=== PATIENT | female | born 1965 | race Caucasian/White ===

== ENCOUNTER 2016-07-17 14:09 | Emergency (ER) | payer MEDICAID ==
[2015-09-16 11:01] VITALS: BMI 24.9
[~2016-07-17 14:09] MED LIST: BYSTOLIC10 MG PO; COZAAR100 MG PO; CYCLOBENZAPRINE10 MG PO; ECOTRIN325 MG PO; FERROUS SULFAT325 MG PO; GLUCOPHAGE500 MG PO; LIPITOR80 MG PO; LYRICA150 MG PO; NITROSTAT0.4 MG SL; POTASSIUM CHLO10 ME1 PO; PRILOSEC20 MG PO; PROVENTIL HFA6.7 GM INH; SINGULAIR10 MG PO; VENTOLIN HFA18 GM INH
[2016-07-17 16:32] LABS: BASOPHILS 0.2 % (0.0-2.0); IMMATURE GRANULOCYTES 0.2 % (0-5); LYMPHOCYTES 24.3 % (15-50); MCH 29.6 pg (26.0-34.0); MCHC 31.8 g/dL (31.0-37.0); MEAN PLATELET VOLUME 12.8 fL (7.4-10.4); MONOCYTES 7.1 % (2-11); NEUTROPHILS 66.2 % (40-80); PLATELET COUNT 120 10x3/uL (130-400); RBC 4.73 10x6/uL (4.00-5.40); RDW 13.7 % (11.5-14.5); WBC 9.2 10x3/uL (4.8-10.8)
[2016-07-17 16:48] LABS: AMYLASE - SERUM 146 U/L (25-115); LIPASE 1289 U/L (73-393)
[2016-07-17 17:46] LABS: ALBUMIN 3.5 g/dL (3.4-5.0); ALKALINE PHOSPHATASE 115 U/L (46-116); ALT (SGPT) 31 U/L (10-68); BILIRUBIN - TOTAL 0.17 mg/dL (0.2-1.3); CALC OSMOLALITY 287 mosm/kg (275-300); CALCIUM 8.6 mg/dL (8.5-10.1); CARBON DIOXIDE 28.8 mmol/L (21.0-32.0); CHLORIDE - SERUM 107 mmol/L (98-107); CREATININE - SERUM 0.8 mg/dL (0.6-1.3); GLUCOSE 129 mg/dL (74-106); POTASSIUM - SERUM 3.6 mmol/L (3.5-5.1); PROTEIN - SERUM 6.8 g/dL (6.4-8.2); SODIUM 144 mmol/L (136-145); UREA NITROGEN 11 mg/dL (7-18); eGFR NON AFRICAN AMERICAN 80 mL/min (90-120)
== END 2016-07-17 18:30 | disposition home or self-care (01) ==
LOC: D.ER 14:09
PROVIDERS: Physician Assistant Medical
DX: K43.9 Ventral hernia without obstruction or gangrene (principal); K59.00 Constipation, unspecified; K86.1 Other chronic pancreatitis; J44.9 Chronic obstructive pulmonary disease, unspecified; I25.10 Atherosclerotic heart disease of native coronary artery without angina pectoris; K21.9 Gastro-esophageal reflux disease without esophagitis; I10 Essential (primary) hypertension; E11.9 Type 2 diabetes mellitus without complications; F17.200 Nicotine dependence, unspecified, uncomplicated

== ENCOUNTER 2016-08-26 11:56 | Emergency (ER) | payer MEDICAID ==
[2015-09-16 11:01] VITALS: BMI 24.9
== END 2016-08-26 13:56 | disposition home or self-care (01) ==
LOC: D.ER 11:56
DX: M25.512 Pain in left shoulder (principal); F17.200 Nicotine dependence, unspecified, uncomplicated

== ENCOUNTER 2017-04-30 07:15 | Inpatient (IN) | payer MEDICAID ==
[~2017-04-30] VITALS: Ht 162.6 cm; Wt 74.1 kg
--- NOTE | ~2017-04-30 | HEMODYNAMI ---
PATIENT:RIKI ROME MEDICAL RECORD: [id number] : 63 LOCATION:[facility] D.211 ADMISSION DATE: 05/01/17 Generatedon:05/02/201710:26 Patient name: RIKI ROME Patient #: [id number] SSN: D OB: 1965 Date of study: 05/02/2017 Page: Of Hemodynamic Procedure Report Patient Data Patient Demographics Procedure consent was obtained First Name: RIKI Gender: Female Last Name: WILD : 1965 Middle Initial: L Age: 52 year(s) Patient #: [id number] Race: Additional ID: [id number] Contact details Address: [place] [address] State: [place] City: [facility] Zip code: [address] Past Medical History History of disease Date Diagnosis Comments CAD Allergies Allergen Reaction Date Comments Reported Other allergy 09/16/2015 IBUPROFEN, PRAMIPEXOLE Other allergy 05/01/2017 ibuprofen, pramipexole Other allergy 05/02/2017 Ibuprofen, Mirapex Admission Admission Data Admission Date: 05/01/2017 Admission Time: 19:02 Room #: [facility] Height (in.): 64 BSA: 1.73 (m2) Height (cm.): 162.56 BMI: 25.75 (kg/m2) Weight (lbs.): 150 Weight (kg.): 68.04 Lab Results Lab Result Date: 05/02/2017 Lab Result Time: 0:00 Biochemistry Name Units Result Min Max BUN mg/dl 11 --(-*--)-- 7 18 Creatinine mg/dl 1.2 --(---*)-- 0.6 1.3 CBC Name Units Result Min Max Hemoglobin g/dl 14 --(*---)-- 13.5 17.5 Procedure Procedure Types Cath Procedure PCI Procedure Coronary Stent Miscellaneous Procedures Moderate Sedation up to 15 minutes Procedure Description Procedure Date Procedure Date: 05/02/2017 Procedure Start Time: 10:08 Procedure End Time: 10:26 Procedure Staff Name Function Joe Millan MD Performing Physician Alcira Palacios RN Nurse She Drake RT Monitor Neli Perez RT Scrub Procedure Data Cath Procedure Fluoroscopy Diagnostic fluoroscopy Total fluoroscopy Time: 3.1 time: 3.1 min min Diagnostic fluoroscopy Total fluoroscopy dose: 318 dose: 318 mGy mGy Contrast Material Contrast Material Type Amount (ml) Isovue 300 75 Entry Location Entry Primary Successful Side Size Upsize Upsize Entry Closure Succes sful Closure Location (Fr) 1 (Fr) 2 (Fr) Remarks Device Remarks Femoral Right 6 Fr Exoseal artery Short Estimated blood loss: 10 ml Procedure Complications No complications Procedure Medications Medication Administration Route Dosage 0.9% NaCl I.V. 100 ml/hr Oxygen NC 2 l/min Lidocaine 2% added to field 20 Heparin Flush Bag added to field 2 bags (1000units/500ml NS) Versed I.V. 1 mg Fentanyl I.V. 50 mcg Versed I.V. 1 mg Fentanyl I.V. 50 mcg Fentanyl I.V. 50 mcg Heparin Bolus I.V. 4000 units Fentanyl I.V. 50 mcg Nitroglycerin IC/IA I.C. 200 mcg Nitroglycerin IC/IA I.C. 200 mcg Nitroglycerin IC/IA I.C. 100 mcg Hemodynamics Rest BSA: 1.73 (m2) HGB: 14 (g/dl) O2 Consumption: Estimated: 235.28 (ml/min) O2 Cons umption indexed: Estimated:136 (ml/min/m) Pre Cath Intra NCS Post Cath Vital Signs Time Heart Resp SPO2 etCO2 NIBP (mmHg) Rhythm Pain Sedation Rate (ipm) (%) (mmHg) Status Level (bpm) 10:00:05 86 18 97 42.2 129/73(99) NSR 0 (11) 10(A) , No pain 10:04:17 75 17 96 0 110/65(81) NSR 0 (11) 9(A) , No pain 10:08:25 77 18 98 52 119/72(98) NSR 0 (11) 9(A) , No pain 10:12:33 80 17 95 51.2 125/80(96) NSR 0 (11) 9(A) , No pain 10:16:47 85 16 93 14.3 121/67(101) NSR 0 (11) 9(A) , No pain 10:20:59 83 16 95 46.7 121/74(104) NSR 0 (11) 10(A) , No pain 10:25:06 86 18 99 44.5 135/82(112) NSR 0 (11) 10(A) , No pain Medications Time Medication Route Dose Verified Delivered Reason Not es Effectiveness by by 9:18:39 0.9% NaCl I.V. 100ml/hr Joe Yousif used for Monty Liu RN procedure 9:18:49 Oxygen NC 2 l/min Joe Yousif Per physician Monty Liu RN 9:18:56 Lidocaine 2% added 20ml Joejhoana Diaz for local to vial Monty Millan MD anesthetic field 9:19:04 Heparin Flush added 2 bags Joe Diaz used for Bag to Monty Millan MD procedure (1000units/500ml field NS) 10:01:36 Versed I.V. 1 mg Joe Eli for sedation Monty Palacios RN 10:01:42 Fentanyl I.V. 50 mcg Joe Eli for sedation Monty Palacios RN 10:06:19 Versed I.V. 1 mg Joe Eli for sedation Monty Palacios RN 10:06:23 Fentanyl I.V. 50 mcg Joe Eli for sedation Monty Palacios RN 10:08:37 Fentanyl I.V. 50 mcg Joe Nullie for sedation Monty Palacios RN 10:09:25 Heparin Bolus I.V. 4000 Joe Buffie for ai ified units Monty Palacios RN anticoagulation with dr millan 10:12:53 Fentanyl I.V. 50 mcg Joe Eli for sedation Monty Palacios RN 10:14:54 Nitroglycerin I.C. 200 mcg Joe Diaz for IC/IA Monty Millan MD vasodilation 10:16:14 Nitroglycerin I.C. 200 mcg Joe Diaz for IC/IA Monty Millan MD vasodilation 10:18:14 Nitroglycerin I.C. 100 mcg Joe Diaz for IC/IA Monty Millan MD vasodilation Procedure Log Time Note 9:06:08 Diagnostic Cath Status : Elective 9:06:25 Neli Perez RT(R) sent for patient. Start room use. 9:06:26 Time tracking: Regular hours 9:06:30 Plan of Care:Hemodynamics will remain stable., Cardiac rhythm will remain stable., Comfort level will be maintained., Respiratory function will remain adequate., Patient/ family verbilizes understanding of procedure., Procedure tolerated without complication., Recovers from procedure without complications.. 9:18:39 0.9% NaCl 100ml/hr I.V. was administered by Nica Liu RN; used for procedure; 9:18:49 Oxygen 2 l/min NC was administered by Nica Liu RN; Per physician; 9:18:56 Lidocaine 2% 20ml vial added to field was administered by Joe Millan MD; for local anesthetic; 9:19:04 Heparin Flush Bag (1000units/500ml NS) 2 bags added to field was administered by Joe Millan MD; used for procedure; 9:20:53 Patient received from PCU to CCL 2 Alert and oriented. Tansferred to table in Supine position. 9:20:54 Warm blankets applied, and balwinder hugger turned on for patient comfort. 9:20:55 Correct patient and procedure confirmed by team. 9:20:56 Signed procedure consent form obtained from patient. 9:20:56 ECG and BP/O2 sat monitors applied to patient. 9:20:57 Full Disclosure recording started 9:22:50 Previous problem with sedation/anesthesia? No ? 9:22:54 Snore? Yes 9:23:00 Sleep apnea? No 9:23:07 Airway obstruction? Yes COPD 9:23:28 H&P Date Dictated: 05/01/2017 Within 30 days and on chart., H&P Addendum completed by physician on day of procedure. (MUST COMPLETE FOR ALL OUTPATIENTS). 9:23:30 Pre-procedure instructions explained to patient. 9:23:42 Family in patients room. 9:23:48 Patient NPO since Midnight. 9:24:22 Patient allergic to Other allergyIbuprofen, Mirapex 9:24:26 Is the patient allergic to Iodine/contrast media? No. 9:24:32 Is patient on blood thinner?Yes 9:24:36 ACC The patient was administered the following blood thiners within the last 24 hours: ACCPlavix 9:24:38 Patient diabetic? Yes. 9:24:42 If diabetic: On Metformin? Yes 9:24:48 If on Metformin: Last Dose? 04/29/2017 9:24:53 HCG/Urine : completed and on chart 9:25:20 Patient pain scale 8/10 ?. 9:25:29 IV patent on arrival in left forearm with 0.9% NaCl at [facility]. 9:26:07 Lab Result : BUN 11 mg/dl 9:26:07 Lab Result : Creatinine 1.2 mg/dl 9:26:07 Lab Result : Hemoglobin 14 g/dl 9:26:12 Lab results completed and on chart. 9:26:16 Left groin area was prepped with chlora-prep and draped in sterile fashion 9:26:22 Sharps counted by scrub and verified by R.N. 9:26:23 Physician paged 9:31:01 Use device set Femoral Dx 9:31:04 ACIST Syringe (46719) opened to sterile field. 9:31:04 Bag Decanter (2002S) opened to sterile field. 9:31:06 Medline Cath Pack ([id number]) opened to sterile field. 9:31:08 DIAGNOSTIC WIRE .035 260cm J wire (410398) opened to sterile field. 9:31:10 ACIST Hand Control (85263) opened to sterile field. 9:31:10 ACIST Manifold (47541) opened to sterile field. 9:31:14 Tegaderm 4 x 4 (1626W) opened to sterile field. 9:31:18 PERCUTANEOUS ENTRY 19GA needle opened to sterile field. 9:31:31 SHEATH 6FR [place] (BHS705) opened to sterile field. 9:37:33 INFLATOR Merit BasixCompak (NL6960) opened to sterile field. 9:37:35 GUIDE 6FR XBLAD 3.5 catheter ([id number]) opened to sterile field. 9:42:09 WHISPER 190cm wire ([id number]) opened to sterile field. 9:42:17 Zero performed for pressure channel P1 9:44:22 Zero performed for pressure channel P1 9:52:52 Procedure type changed to Cath procedure, PCI procedure, Coronary Stent, Miscellaneous Procedures, Moderate Sedation up to 15 minutes 9:53:49 Patient Height : 64 inches 9:53:53 Patient Weight : 150 lbs 9:55:10 Physician arrived 9:55:11 --------ALL STOP TIME OUT------ 9:55:12 Final Timeout: patient, procedure, and site verified with staff and physician. All members of the team are in agreement. 9:55:20 Left groin site verified by team. 9:55:24 Physical assessment completed. ASA score P 2 - A patient with mild systemic disease as per Joe Millan MD. 9:55:28 Sedation plan: IV Moderate Sedation Medication:Versed, Fentanyl 9:58:59 Vital chart was started 10:01:36 Versed 1 mg I.V. was administered by Alcira Palacios RN; for sedation; 10:01:42 Fentanyl 50 mcg I.V. was administered by Alcira Palacios RN; for sedation; 10:06:19 Versed 1 mg I.V. was administered by Alcira Palacios RN; for sedation; 10:06:23 Fentanyl 50 mcg I.V. was administered by Alcira Palacios RN; for sedation; 10:08:36 Procedure started. 10:08:37 Fentanyl 50 mcg I.V. was administered by Alcira Palacios RN; for sedation; 10:08:40 Local anesthetic to left femerol artery with Lidocaine 2% by Joe Millan MD.INITIAL ACCESS ONLY 10:08:50 A 6 Fr Short sheath was inserted into the Right Femoral artery 10:09:25 Heparin Bolus 4000 units I.V. was administered by Alcira Palacios RN; for anticoagulation; verified with dr millan 10:09:30 6 Fr XBLAD 3.5 guide catheter was inserted over the wire 10:09:38 Whisper wire advanced. 10:09:48 Wire advanced across lesion. 10:10:51 Wire redirected to CX. 10:11:30 Inflation Number: 1 A INTEGRITY RX 3.0 x 15 stent ([id number]) was prepped and advanced across the Mid CX. The stent was deployed at 11 TADEO for 0:10 (min:sec). 10:12:00 Stent catheter was removed intact over wire. 10:12:53 Fentanyl 50 mcg I.V. was administered by Alcira Palacios RN; for sedation; 10:14:10 Inflation number: 2 A NC EUPHORA 3.0 x 12 balloon ([id number]) was prepped and advanced across the Mid CX, then inflated to 15 TADEO for 0:10 (min:sec). 10:14:54 Nitroglycerin IC/IA 200 mcg I.C. was administered by Joe Millan MD; for vasodilation; 10:14:56 Balloon removed over the wire. 10:16:14 Nitroglycerin IC/IA 200 mcg I.C. was administered by Joe Millan MD; for vasodilation; 10:17:54 Wire removed. 10:18:14 Nitroglycerin IC/IA 100 mcg I.C. was administered by Joe Millan MD; for vasodilation; 10:18:53 Guide catheter removed. 10:19:05 Sheath removed intact; hemostasis achieved with Exoseal to the Right Femoral artery. 10:19:15 EXOSEAL 6Fr (EX600) opened to sterile field. 10:19:24 Procedure ended.(Physican Out) 10:20:33 Fluoroscopy time 03.10 minutes. 10:20:41 Fluoroscopy dose: 318 mGy 10:20:41 Flurop Dose total: 318 10:20:48 Contrast amount:Isovue 300 75ml. 10:20:50 Sharps counted by scrub and verified by R.N. 10:20:53 Insertion/operative site no bleeding no hematoma. 10:20:57 Post-op/insertion site Left Femoral artery dressed using a 4 x 4 and Tegaderm. 10:21:02 Post Procedure Pulses reassessed and unchanged 10:21:07 Post-procedure physical assessment completed. ASA score P 2 - A patient with mild systemic disease as per Joe Millan MD. 10:21:14 Post procedure rhythm: sinus rhythm 10::17 Estimated blood loss: 10 ml 10:21:19 Post procedure instruction explained to patient.Patient verbalizes understanding. 10:21:29 Procedure and supply charges have been captured, reviewed, submitted and are correct. 10:25:57 Procedure Complication : No complications 10:26:00 Vital chart was stopped 10:26:02 See physician's report for complete and final results. 10:26:04 Report given to Pre/Post Procedure Room. 10:26:07 Patient transfered to Pre/Post Procedure Room with Stretcher. 10:26:09 Procedure ended. 10:26:09 Full Disclosure recording stopped 10:26:13 End room use (Document Last) Intervention Summary Intervention Notes Time ActionType Lesion and Equipment Action# Pressure Duration Attributes Used 10:11:30 Place stent Mid CX INTEGRITY RX 1 11 00:10 3.0 x 15 stent ([id number]) 10:14:10 Inflate Mid CX NC EUPHORA 2 15 00:10 balloon 3.0 x 12 balloon ([id number]) Device Usage Item Name Manufacture Quantity Catalog Hospital Part Current Minimal Lot# / Number Charge Number Stock Stock Serial# Code ACIST Acist 1 26139 888155 334548 146577 20 Syringe Medical (77463) Systems Inc Bag Decanter Microtek 1 2001S 525796 17763 072630 5 (2001S) Medical Inc. Medline Cath Cardinal 1 [id number] 467888 69311 952214 5 Pack Health ([id number]) DIAGNOSTIC [place] 1 638363 537613 282174 580421 30 WIRE .035 260cm J wire (434692) ACIST Hand Acist 1 62395 268062 452430 196698 5 Control Medical (93952) Systems Inc ACIST Acist 1 43335 173069 312123 888029 5 Manifold Medical (37793) Systems Inc Tegaderm 4 x 3M 1 1626W 633535 473750 151292 5 4 (1626W) PERCUTANEOUS Cook Medical 1 M90063 085231 053771 5 ENTRY 19GA needle SHEATH 6FR Terumo 1 HKJ503 190400 396210 440545 40 [place] (ZMQ914) INFLATOR [facility] 1 OT6252 165909 308948 177733 15 [facility] BasixCompak (RY3331) GUIDE 6FR Cardinal 1 [id number] 076977 784753 505114 10 XBLAD 3.5 Health catheter (14125801) WHISPER Manuel 1 [id number] 820668 982932 985060 5 190cm wire Vascular ([id number]) INTEGRITY RX Medtronic 1 [id number] 311090 568028 419704 5 [id number] 3.0 x 15 stent ([id number]) NC EUPHORA Medtronic 1 [id number] 963637 404506 353029 1 [id number] 3.0 x 12 balloon ([id number]) EXOSEAL 6Fr Cardinal 1 EX600 653626 729577 226470 10 (EX600) Health Signature Audit [place] Stage Time Signature Unsigned Intra-Procedure 05/02/2017 She Drake 10:26:40 AM RT(R) Signatures Monitor : She Drake Signature : RT Date : Time : [place] [id number] [place] [address]
--- NOTE | ~2017-04-30 | HEMODYNAMI ---
PATIENT:RIKI ROME MEDICAL RECORD: [id number] : 63 LOCATION:[facility] D.2116 ADMISSION DATE: 04/30/17 Generatedon:05/01/201710:43 Patient name: RIKI ROME Patient #: [id number] SSN: D OB: 1965 Date of study: 05/01/2017 Page: Of Hemodynamic Procedure Report Patient Data Patient Demographics Procedure consent was obtained First Name: RIKI Gender: Female Last Name: WILD : 1965 Middle Initial: L Age: 52 year(s) Patient #: [id number] Race: Additional ID: [id number] Contact details Address: [place] [address] State: [place] [facility] [place] code: [address] Past Medical History History of disease Date Diagnosis Comments CAD Allergies Allergen Reaction Date Comments Reported Other allergy 09/16/2015 IBUPROFEN, PRAMIPEXOLE Other allergy 05/01/2017 ibuprofen, pramipexole Admission Admission Data Admission Date: 04/30/2017 Admission Time: 10:56 Room #: D.2116 Procedure Procedure Types Cath Procedure Diagnostic Procedure C [facility] w/Coronaries PCI Procedure Coronary Stent Coronary Stent Initial Miscellaneous Procedures Moderate Sedation up to 15 minutes Procedure Description Procedure Date Procedure Date: 05/01/2017 Procedure Start Time: 10:20 Procedure End Time: 10:43 Procedure Staff Name Function Joe Millan MD Performing Physician Deysi Patel RT Monitor Kirill Saini RT Scrub Alcira Palacios RN Nurse Procedure Data Cath Procedure Fluoroscopy Diagnostic fluoroscopy Total fluoroscopy Time: 3.4 time: 3.4 min min Diagnostic fluoroscopy Total fluoroscopy dose: 278 dose: 278 mGy mGy Contrast Material Contrast Material Type Amount (ml) Isovue 300 88 Entry Location Entry Primary Successful Side Size Upsize Upsize Entry Closure Succes sful Closure Location (Fr) 1 (Fr) 2 (Fr) Remarks Device Remarks Femoral Right 5 Fr 6 Fr Exoseal artery Short Estimated blood loss: 10 ml Diagnostic catheters Device Type Used For End Catheter Placement MULTIPACK Pigtail 5 Fr LV Angiography catheter MULTIPACK JL 4.0 5Fr Left Coronary catheter Angiography MULTIPACK 3DRC 5Fr Right Coronary catheter Angiography DIAGNOSTIC AR 2 MOD 5 Fr Right Coronary catheter ([id number]) Angiography Procedure Complications No complications Procedure Medications Medication Administration Route Dosage Oxygen NC 2 l/min Lidocaine 2% added to field 20 Heparin Flush Bag added to field 2 bags (1000units/500ml NS) 0.9% NaCl I.V. 100 ml/hr Versed I.V. 1 mg Fentanyl I.V. 50 mcg Heparin Bolus I.V. 4000 units Nitroglycerin IC/IA I.C. 200 mcg Versed I.V. 1 mg Fentanyl I.V. 50 mcg Plavix P.O. 75 mg Hemodynamics Rest Heart Rate: 68 (bpm) Snapshots Pre Cath Intra NCS Post Cath Vital Signs Time Heart Resp SPO2 etCO2 NIBP (mmHg) Rhythm Pain Sedation Rate (ipm) (%) (mmHg) Status Level (bpm) 9:49:14 69 21 95 21.8 101/51(91) NSR 0 (11) 10(A) , No pain 9:54:27 67 19 99 18 117/72(86) NSR 0 (11) 10(A) , No pain 9:59:08 68 14 99 17.8 114/66(84) NSR 0 (11) 10(A) , No pain 10:03:53 66 17 98 20.3 100/57(87) NSR 0 (11) 10(A) , No pain 10:08:33 66 17 98 22.5 108/61(80) NSR 0 (11) 10(A) , No pain 10:13:16 69 16 98 23.3 100/62(88) NSR 0 (11) 10(A) , No pain 10:17:58 65 15 99 22.5 93/53(81) NSR 0 (11) 10(A) , No pain 10:22:37 66 15 98 14.2 106/56(74) NSR 0 (11) 9(A) , No pain 10:27:18 70 16 98 16.5 109/63(80) NSR 0 (11) 9(A) , No pain 10:32:00 74 21 97 39.8 119/61(94) NSR 0 (11) 9(A) , No pain 10:36:43 76 18 98 39.1 129/68(108) NSR 0 (11) 10(A) , No pain 10:41:28 79 24 98 38.3 141/79(101) NSR 0 (11) 10(A) , No pain Medications Time Medication Route Dose Verified Delivered Reason Notes Effectiveness by by 9:53:11 Oxygen NC 2 Joe Eli used for l/min Monty Palacios RN procedure 9:53:17 Lidocaine 2% added 20ml Joe Diaz for local to vial Monty Millan MD anesthetic field 9:53:23 Heparin Flush added 2 Joe Diaz used for Bag to bags Monty Millan MD procedure (1000units/500ml field NS) 9:53:32 0.9% NaCl I.V. 100 Joe Eli Per physician ml/hr Monty Palacios RN 10:18:48 Versed I.V. 1 mg oJe Eli for sedation Monty Palacios RN 10:18:54 Fentanyl I.V. 50 Joe Eli for sedation mcg Monty Palacios RN 10:21:28 Versed I.V. 1 mg Joe Eli for sedation Monty Palacios RN 10:21:32 Fentanyl I.V. 50 Joe Eli for sedation mcg Monty Palacios RN 10:25:53 Heparin Bolus I.V. 4000 Joe Eli for verifi ed units Monty Palacios RN anticoagulation with dr millan 10:29:38 Nitroglycerin I.C. 200 Joe Diaz for IC/IA mcg Monty Millan MD vasodilation 10:38:04 Plavix P.O. 75 mg Joe Eli for Monty Palacios RN antiplatelet therapy Procedure Log Time Note 9:32:55 Alcira Palacios RN sent for patient. Start room use. 9:32:55 Time tracking: Regular hours 9:33:00 Plan of Care:Hemodynamics will remain stable., Cardiac rhythm will remain stable., Comfort level will be maintained., Respiratory function will remain adequate., Patient/ family verbilizes understanding of procedure., Procedure tolerated without complication., Recovers from procedure without complications.. 9:37:27 H&P Date Dictated: 04/30/2017 Within 30 days and on chart., H&P Addendum completed by physician on day of procedure. (MUST COMPLETE FOR ALL OUTPATIENTS). 9:38:56 Patient allergic to Other allergyibuprofen, pramipexole 9:39:00 Patient diabetic? Yes. 9:39:01 If diabetic: On Metformin? Yes 9:39:04 If on Metformin: Last Dose? 04/29/2017 9:39:08 ACC The patient was administered the following blood thiners within the last 24 hours: None 9:39:25 Previous problem with sedation/anesthesia? No ? 9:39:26 Snore? No 9:39:27 Sleep apnea? No 9:39:28 Deviated septum? No 9:39:28 Opens mouth fully? Yes 9:39:29 Sticks out tongue? Yes 9:39:32 Airway obstruction? Yes COPD 9:39:34 Dentures? Yes IN 9:39:41 Use device set Femoral Dx 9:39:42 ACIST Syringe (37346) opened to sterile field. 9:39:43 Bag Decanter (2002S) opened to sterile field. 9:39:43 Medline Cath Pack ([id number]) opened to sterile field. 9:39:44 SHEATH 5FR Ely (BCX606) opened to sterile field. 9:39:44 DIAGNOSTIC WIRE .035 260cm J wire (694147) opened to sterile field. 9:39:46 ACIST Hand Control (68041) opened to sterile field. 9:39:46 ACIST Manifold (62442) opened to sterile field. 9:39:47 DIAGNOSTIC Multipack 5Fr catheter set ([id number]) opened to sterile field. 9:39:48 Tegaderm 4 x 4 (1626W) opened to sterile field. 9:39:49 PERCUTANEOUS ENTRY 19GA needle opened to sterile field. 9:43:16 Warm blankets applied, and balwinder hugger turned on for patient comfort. 9:43:17 Correct patient and procedure confirmed by team. 9:44:30 Patient received from PCU to CCL 1 Alert and oriented. Tansferred to table in Supine position. 9:48:09 Signed procedure consent form obtained from patient. 9:48:10 ECG and BP/O2 sat monitors applied to patient. 9:48:11 Vital chart was started 9:50:24 Rhythm: sinus rhythm 9:50:27 Baseline sample Acquired. :50: Full Disclosure recording started 9:50:29 Pre-procedure instructions explained to patient. :50: Pre-op teaching completed and patient verbalized understanding. 9:50:30 Family in waiting room. 9:50:32 Patient NPO since Midnight. 9:50:34 Is the patient allergic to Iodine/contrast media? No. 9:50:37 Is patient on blood thinner?No 9:50:44 Pre procedure: right dorsailis pedis pulse 2+ Normal; easily identifiable; not easily obliterated 9:50:47 Patient pain scale 0/10 ?. 9:50:54 IV patent on arrival in left forearm with 0.9% NaCl at KVO. 9:50:57 Lab results completed and on chart. 9:51:01 Right groin area was prepped with chlora-prep and draped in sterile fashion 9:51:03 Alarms reviewed by R. N. 9:51:03 Sharps counted by scrub and verified by R.N. 9:53:11 Oxygen 2 l/min NC was administered by Alcira Palacios RN; used for procedure; 9:53:17 Lidocaine 2% 20ml vial added to field was administered by Joe Millan MD; for local anesthetic; 9:53:23 Heparin Flush Bag (1000units/500ml NS) 2 bags added to field was administered by Joe Millan MD; used for procedure; 9:53:32 0.9% NaCl 100 ml/hr I.V. was administered by Alcira Palacios RN; Per physician; 10:01:17 Physician paged 10:01:24 Zero performed for pressure channel P1 10:17:58 Final Timeout: patient, procedure, and site verified with staff and physician. All members of the team are in agreement. 10:18:04 Right groin site verified by team. 10:18:08 Physical assessment completed. ASA score P 2 - A patient with mild systemic disease as per Joe Millan MD. 10:18:12 Sedation plan: IV Moderate Sedation Medication:Versed, Fentanyl 10:18:48 Versed 1 mg I.V. was administered by Alcira Palacios RN; for sedation; 10:18:54 Fentanyl 50 mcg I.V. was administered by Alcira Palacios RN; for sedation; 10:19:57 Procedure started. 10:20:01 Local anesthetic to right femoral artery with Lidocaine 2% by Joe Millan MD.INITIAL ACCESS ONLY 10:21:09 A 5 Fr sheath was inserted into the Right Femoral artery 10:21:28 Versed 1 mg I.V. was administered by Alcira Palacios RN; for sedation; 10:21:32 Fentanyl 50 mcg I.V. was administered by Alcira Palacios RN; for sedation; 10:21:39 A MULTIPACK Pigtail 5 Fr catheter was advanced over the wire and used for LV Angiography. 10:21:59 LV gram done using CORONADO 10:22:02 Injector settings: Ml/sec: 10, Volume: 20, 10:22:12 EF : 60 % 10:22:17 Catheter removed. 10:22:23 A MULTIPACK JL 4.0 5Fr catheter was advanced over the wire and used for Left Coronary Angiography. 10:23:08 Catheter removed. 10:23:14 A MULTIPACK 3DRC 5Fr catheter was advanced over the wire and used for Right Coronary Angiography. 10:23:24 Use device set [facility] PCI 10:23:30 SHEATH 6FR Ely ([id number]) opened to sterile field. 10:23:31 INFLATOR Merit BasixCompak (QP3069) opened to sterile field. 10:24:03 Catheter removed. 10:24:26 A DIAGNOSTIC AR 2 MOD 5 Fr catheter ([id number]) was advanced over the wire and used for Right Coronary Angiography. 10:25:53 Heparin Bolus 4000 units I.V. was administered by Alcira Palaciso RN; for anticoagulation; verified with dr millan 10:26:26 WHISPER 190cm wire ([id number]) opened to sterile field. 10:27:16 Sheath upsized to a 6 Fr Short. 10:28:54 GUIDE 6FR AR 1.0 SH catheter ([id number]) opened to sterile field. 10:29:38 Nitroglycerin IC/IA 200 mcg I.C. was administered by Joe Millan MD; for vasodilation; 10:29:47 6 Fr AR 1 Sh guide catheter was inserted over the wire 10:29:51 Whisper wire advanced. 10:31:20 Inflation Number: 1 A INTEGRITY RX 3.0 x 15 stent ([id number]) was prepped and advanced across the Prox RCA. The stent was deployed at 13 TADEO for 0:05 (min:sec). 10:31:33 Inflation number: 2 The stent balloon was then re-inflated across the Prox RCA to 13 TADEO for 0:04 (min:sec). 10:31:39 Inflation number: 3 The stent balloon was then re-inflated across the Prox RCA to 13 TADEO for 0:02 (min:sec). 10:31:47 Inflation number: 4 The stent balloon was then re-inflated across the Prox RCA to 13 TADEO for 0:02 (min:sec). 10:32:05 Stent catheter was removed intact over wire. 10:32:06 Wire removed. 10:32:06 Guide catheter removed. 10:32:16 Sheath removed intact; hemostasis achieved with Exoseal to the Right Femoral artery. 10:32:18 Procedure ended.(Physican Out) 10:32:32 EXOSEAL 6Fr (EX600) opened to sterile field. 10:32:41 Fluoroscopy time 03.40 minutes. 10:32:43 Fluoroscopy dose: 278 mGy 10:32:43 Flurop Dose total: 278 10:32:47 Contrast amount:Isovue 300 88ml. 10:32:48 Sharps counted by scrub and verified by R.N. 10:32:50 Insertion/operative site no bleeding no hematoma. 10:32:52 Post-op/insertion site Right Femoral artery dressed using a 4 x 4 and Tegaderm. 10:32:56 Post right femoral artery:stable, soft, clean and dry 10:32:58 Post Procedure Pulses reassessed and unchanged 10:33:01 Post-procedure physical assessment completed. ASA score P 2 - A patient with mild systemic disease as per Joe Millan MD. 10:33:03 Post procedure rhythm: unchanged. 10:33:05 Estimated blood loss: 10 ml 10:33:07 Post procedure instruction explained to patient.Patient verbalizes understanding. 10:33:07 Patient needs reinforcement of post procedure teaching. 10:33:32 Procedure type changed to Cath procedure, Diagnostic procedure, LHC, LHC w/Coronaries, PCI procedure, Coronary Stent, Coronary Stent Initial, Miscellaneous Procedures, Moderate Sedation up to 15 minutes 10:33:38 Procedure Complication : No complications 10:33:41 See physician's report for complete and final results. 10:35:59 Procedure and supply charges have been captured, reviewed, submitted and are correct. 10:38:04 Plavix 75 mg P.O. was administered by Alcira Palacios RN; for antiplatelet therapy; 10:43:00 Vital chart was stopped 10:43:03 Report given to PCU. 10:43:07 Patient transfered to PCU with Bed. 10:43:16 Procedure ended. 10:43:16 Full Disclosure recording stopped 10:43:23 End room use (Document Last) Intervention Summary Intervention Notes Time ActionType Lesion and Equipment Action# Pressure Duration Attributes Used 10:31:20 Place stent Prox RCA INTEGRITY RX 1 13 00:05 3.0 x 15 stent ([id number]) 10:31:33 Reinflate Prox RCA INTEGRITY RX 2 13 00:04 stent 3.0 x 15 balloon stent ([id number]) 10:31:39 Reinflate Prox RCA INTEGRITY RX 3 13 00:02 stent 3.0 x 15 balloon stent ([id number]) 10:31:47 Reinflate Prox RCA INTEGRITY RX 4 13 00:02 stent 3.0 x 15 balloon stent ([id number]) Device Usage Item Name Manufacture Quantity Catalog Hospital Part Current Minimal Lot# / Number Charge Number Stock Stock Serial# Code ACIST Acist 1 16125 149500 223609 700891 20 Syringe Medical (65202) Systems Inc Bag Decanter Microtek 1 2001S 578025 49086 530336 5 (2001S) Medical Inc. Medline Cath Cardinal 1 [id number] 282726 39724 759857 5 Pack Health ([id number]) SHEATH 5FR Terumo 1 LPY025 152320 331170 783702 40 Ely (HCU433) DIAGNOSTIC St Juan 1 279122 083924 369573 449813 30 WIRE .035 260cm J wire (063239) ACIST Hand Acist 1 61680 777934 786993 271935 5 Control Medical (42952) Systems Inc ACIST Acist 1 89624 098985 057096 008289 5 Manifold Medical (51247) Systems Inc DIAGNOSTIC Cardinal 1 JU5970 036668 35098 624064 30 MultipPanX 5Fr catheter set (GU6795) Tegaderm 4 x 3M 1 1626W 666955 892889 336720 5 4 (1626W) PERCUTANEOUS Cook Medical 1 P26651 508637 457599 5 ENTRY 19GA needle MULTIPACK Cardinal 1 006968 5 Pigtail 5 Fr Health catheter MULTIPACK JL Cardinal 1 173264 5 4.0 5Fr Health catheter MULTIPACK Cardinal 1 114509 5 3DRC 5Fr Health catheter SHEATH 6FR Terumo 1 MNJ712 070835 427065 101916 40 Ely (LKK516) INFLATOR Merit 1 QI5603 807829 923074 720488 15 [facility] Medical BasixCompak (GU2652) DIAGNOSTIC Cardinal 1 [id number] 620163 432122 373247 20 AR 2 MOD 5 Health Fr catheter (398229T) WHISPER Manuel 1 [id number] 904311 567473 606638 5 190cm wire Vascular (7932810AR) GUIDE 6FR AR Medtronic 1 [id number] 368247 71573 130489 1 1.0 SH catheter ([id number]) INTEGRITY RX Medtronic 1 [id number] 160107 581204 916658 5 [id number] 3.0 x 15 stent ([id number]) EXOSEAL 6Fr Cardinal 1 EX600 843777 844399 768844 10 (EX600) Health Signature Audit Ho[place] Stage Time Signature Unsigned Intra-Procedure 05/01/2017 Deysi 10:43:44 AM Counts RT(R) Signatures Monitor : Deysi Signature : Counts RT Date : Time : [address] [address]
[~2017-04-30 07:15] MED LIST changes: +OMEPRAZOLE40 MG PO; -PRILOSEC20 MG PO
[2017-04-30 08:15] LABS: BASOPHILS 0.2 % (0-2); EOSINOPHILS 1.9 % (0-7); HEMATOCRIT 42.3 % (36.0-48.0); IMMATURE GRANULOCYTES 0.2 % (0-5); LYMPHOCYTES 21.7 % (15-50); MCH 30.1 pg (26.0-34.0); MCHC 33.1 g/dL (31.0-37.0); MONOCYTES 5.3 % (2-11); NEUTROPHILS 70.7 % (40-80); PLATELET COUNT 115 10x3/uL (130-400); RBC 4.65 10x6/uL (4.00-5.40); RDW 13.1 % (11.5-14.5); WBC 8.5 10x3/uL (4.8-10.8)
[2017-04-30 08:28] LABS: ALBUMIN 3.3 g/dL (3.4-5.0); ALKALINE PHOSPHATASE 133 U/L (46-116); ALT (SGPT) 37 U/L (10-68); BILIRUBIN - TOTAL 0.21 mg/dL (0.2-1.3); CALC OSMOLALITY 286 mosm/kg (275-300); CALCIUM 8.8 mg/dL (8.5-10.1); CARBON DIOXIDE 29.3 mmol/L (21.0-32.0); CHLORIDE - SERUM 104 mmol/L (98-107); CREATININE - SERUM 1.2 mg/dL (0.6-1.3); POTASSIUM - SERUM 3.5 mmol/L (3.5-5.1); SODIUM 140 mmol/L (136-145); UREA NITROGEN 11 mg/dL (7-18); eGFR NON AFRICAN AMERICAN 50 mL/min (90-120)
[2017-04-30 08:29] LABS: GLUCOSE 256 mg/dL (74-106)
[2017-04-30 08:39] LABS: CHOLESTEROL, TOTAL 159 mg/dL (0-200); CKMB 1.9 U/L (0.0-3.6); CREATINE KINASE 122 UL (21-215); HDL CHOLESTEROL 32 mg/dL (32-96); LDL CHOLESTEROL 62 mg/dL (0-100); LDL-HDL RATIO 1.9 ratio (1.5-3.5); TRIGLYCERIDE 327 mg/dL (30-200); TROPONIN-I < 0.017 ng/mL (0.000-0.060)
--- NOTE | 2017-04-30 11:22 | NUR ---
TRANSFER FROM ER BY W/C. SARAHINTED TO ROOM. CALL LIGHT IN REACH. WILL CONT. PLAN OF CARE.
[2017-04-30] MEDS ORDERED: PROVENTIL/2.5 MG/3 M INH (11:31)
[2017-04-30] MEDS ORDERED: AMITRIPTYLINE100 MG PO (11:32)
[2017-04-30] MEDS ORDERED: PULMICORT0.5 MG/21 INH (11:35)
[2017-04-30] MEDS ORDERED: BUPROPION HCL150 M1 PO (11:35)
[2017-04-30] MEDS ORDERED: OS-CAL500 MG PO (11:36)
[2017-04-30] MEDS ORDERED: ZYRTEC10 MG PO (11:37)
[2017-04-30] MEDS ORDERED: CYCLOBENZAPRINE10 MG PO (11:38)
[2017-04-30] MEDS ORDERED: NEURONTIN 300300 MG PO (11:38)
[2017-04-30] MEDS ORDERED: TRICOR48 MG PO (11:38)
[2017-04-30] MEDS ORDERED: HYDROCHLOROTHIA25 MG PO (11:39)
[2017-04-30] MEDS ORDERED: HYDROCODON-ACE1 EAC7 PO (11:41)
[2017-04-30] MEDS ORDERED: ZANTAC150 MG PO (11:45)
[2017-04-30] MEDS ORDERED: ULTRAM50 MG PO (11:46)
[2017-04-30 12:18] VITALS: BP 127/87
[2017-04-30 12:23] VITALS: BP 127/87; BMI 25.8
[2017-04-30 13:21] VITALS: Ht 162.6 cm; Wt 74.1 kg
--- NOTE | 2017-04-30 14:16 | NUR ---
CONSENTS SIGNED FOR [facility].
[2017-04-30 15:30] VITALS: BP 114/71
[2017-04-30 20:00] VITALS: BP 112/66
--- NOTE | 2017-04-30 22:27 | NUR ---
INITIA ROUNDS COMPLETED AT 1915 HRS. PT STATED SHE HAS CP AND NEEDED SOME MORPHINE AND HER BREATHING TX. RT NOTIFIED. MORPHINE 4MG SIVP GIVEN VIA LAC SL. ASSESSMENT COMPLETED AT 1920 HRS. VSS. SR PER CM HR 81. O2 2LNC. LUNGS DIMINISHED IN BASES BILAT. ALERT AND ORIENTED. EXPLAINED NPO AFTER MIDNIGHT FOR AM [facility]. PT STATED UNDERSTANDING. PM MEDS GIVNE PER ORDERS. PT CURRENTLY WATCHING TV. WILL CONTINUE TO MONITOR. SR UP X2, CALL LIGHT WITHIN REACH.
--- NOTE | 2017-05-01 00:09 | NUR ---
PT RESTING WITH EYES CLOSED. RESP EVEN AND REGULAR. SR UP X2, CALL LIGHT WITHIN REACH.
--- NOTE | 2017-05-01 02:36 | NUR ---
PT RESTING WITH EYES CLOSED. RESP EVEN AND REGULAR. SR UP X2, CALL LIGHT WITHIN REACH.
[2017-05-01 04:00] VITALS: BP 108/65
--- NOTE | 2017-05-01 04:45 | NUR ---
PT RESTING WITH EYES CLOSED. RESP EVEN AND REGULAR. SR UP X2, CALL LIGHT WITHIN REACH.
--- NOTE | 2017-05-01 06:41 | NUR ---
PT RESTED WELL DURING SHIFT. DENIES ANY DISCOMFORT THIS AM. PT IN PROCESS OF HIBICLENS BT FOR AM LHC. NEEDS MET; WILL CONTINUE TO MONITOR.
[2017-05-01 08:00] VITALS: BP 101/60
--- NOTE | 2017-05-01 09:41 | NUR ---
TO MANAGER WAREHOUSE VIA BED IN STABLE CONDITION
[2017-05-01 12:00] VITALS: BP 133/65
[2017-05-01 16:00] VITALS: BP 102/65
[2017-05-01 20:00] VITALS: BP 123/84
--- NOTE | 2017-05-01 20:17 | NUR ---
INITIAL ROUNDS COMPLETED AT 1915 HRS. ASESSMENT COMPLETED AT THAT TIME. SR PER CM HR 77. LUNGS DIMINISHED IN BASES BILAT. IV TO LAC CHAGED TO SL. R GROIN CLEAN, DRY AND INTACT. WILL CONTINUE TO MONITOR. SR UP X2, CALL LIGHT WITHIN REACH.
--- NOTE | 2017-05-01 22:34 | NUR ---
MORPHINE 4MG SIVP GIVEN FOR C/O CHEST AND R LEG SORENESS. WILL CONTIUE TO MONITOR.
--- NOTE | 2017-05-01 23:47 | NUR ---
PT AWAKE; DENIES ANY DISCOMFORT. NO CHANGES TO R GROIN NOTED. WILL CONTINUE TO MONITOR.
[2017-05-02] VITALS: BP 131/75
--- NOTE | 2017-05-02 02:06 | NUR ---
PT AWAKE; DENIES ANY DISCOMFORT. WILL CONTINUE TO MONITOR.
[2017-05-02 04:00] VITALS: BP 134/48
--- NOTE | 2017-05-02 04:22 | NUR ---
PT RESTING WITH EYES CLOSED. RESP EVEN AND REGULAR. SR UP X2, CALL LIGHT WITHIN REACH.
--- NOTE | 2017-05-02 06:29 | NUR ---
HIBICLENS BATH DONE. IV TO LAC OUT WITH CATHETER INTACT. NEW IV STARTED #20 TO INNER LFA WITH ATTEMPT X2. PT TOLERATED ACTIVITY WELL. NS STARTED AT 50C/HR. VSS THROUGHOUTNIGHT. SR PER CM. PT SLEPT WELL AFTER MORPHINE ADMINISTRATION, NEEDS MET; WILL CONTINUE TO MONITOR.
[2017-05-02 07:39] VITALS: BP 122/73
--- NOTE | 2017-05-02 09:10 | NUR ---
PRE-OPS GIVEN. TO RADIO ASSEMBLER BY BED.
--- NOTE | 2017-05-02 10:23 | HP ---
PATIENT: RIKI ROME MEDICAL RECORD: [id number] ACCOUNT: [id number] LOCATION:[facility].2116 : 63 ADMISSION DATE: 05/01/17 HISTORY AND PHYSICAL EXAMINATION DIAGNOSES: 1. Angina. 2. Coronary artery disease. 3. Previous PTCA and stent in 2011. HISTORY OF PRESENT ILLNESS: Ms. Rome presents with 2 days of anginal symptomatology. Her EKG is with no acute chest pain or chest discomfort. She continues to have chest pain. It is just like that of her previous angina. Her EKG is with nonspecific ST-T abnormalities. PHYSICAL EXAMINATION: GENERAL APPEARANCE: Well-nourished, well-developed, appears stated age. Level of distress, comfortable. PSYCHIATRIC: Mental status, alert, normal affect. Orientation, oriented to time, place and person. EYES: Lids and conjunctiva, noninjected. No discharge, no pallor. ENT: Lips, teeth, gums, normal dentition. Oropharynx, no cyanosis, no pallor. NECK: Carotid arteries, bilateral normal upstroke, no bruits, no thrills. JUGULAR VEINS: No jugular venous pressure or distention. CERVICAL LYMPH NODES: Nontender, nonenlarged. THYROID: Not enlarged. Nontender. No nodules. LUNGS: Respiratory effort, unlabored. CHEST: Normal curvature. No thoracic deformity. No chest wall tenderness. Percussion, resonant. Auscultation, clear. No wheezes, no rales, no rhonchi. CARDIOVASCULAR: Precordial exam, nondisplaced. No heaves or pericardial thrills. Rate and rhythm, regular. Heart sounds, normal S1, normal S2. No S3, no gallop, no rub. Systolic murmur, not heard. Diastolic murmur, not heard. EXTREMITIES: No cyanosis, no edema. Peripheral pulses, full and equal in all extremities, except as noted. No bruits appreciated. ABDOMEN: Soft, nondistended. Normal aorta. No bruit. Nontender. No masses. Liver, nontender, no hepatomegaly. Spleen, nontender, no splenomegaly. MUSCULOSKELETAL: No joint tenderness. No joint swelling. No erythema. NEUROLOGICAL: Normal gait, normal strength, normal tone. SKIN: Warm and dry. REVIEW OF SYSTEMS: The patient reports easy bruising but reports no swollen glands. The patient reports no fever, no night sweats, no significant weight gain, no significant weight loss. No significant exercise tolerance. The patient reports no dry eyes, no irritation, no vision change. Patient reports no difficulty hearing and no ear pain. Patient reports no frequent nose bleeds or nose and sinus problems. Patient reports on arm pain on exertion. No shortness of breath while lying down. No history of heart murmur. Patient reports no cough, no wheezing or coughing up blood. Patient reports no abdominal pain, no vomiting. Normal appetite. No diarrhea and not vomiting blood. No nausea and no constipation. Patient reports no incontinence. No difficulty urinating. No hematuria. No increased frequency. Patient reports no muscle aches. No weakness, no arthralgias, no back pain. No swelling of the extremities. Patient reports no abnormal mole, no jaundice, no rashes. Reports no loss of consciousness. No weakness and no numbness. No seizures, dizziness, or headaches. The patient reports no depression, no sleep disturbance, feeling HISTORY AND PHYSICAL [id number] RIKI ROME safe in a relationship and no alcohol abuse. Patient reports on fatigue. Reports no runny nose or sinus pressure. No itching, no hives, and no frequent sneezing. OVERALL IMPRESSION: Chest pain compatible with angina. At this time, we will load her with Plavix, proceed with coronary angiography in the a.m. Further care depends on findings of the angiography. TRANSINT:[id number] Voice Confirmation ID: [id number] DOCUMENT ID: [id number] LISA PRASAD MD at 1023 CC: [id number] DICTATION DATE: 04/30/17906 PIPE CONNECTOR: 04/30/17 1000 ADM IN [place] [id number] [place] [id number]
--- NOTE | 2017-05-02 10:48 | NUR ---
BACK FROM ENVIRONMENTAL AUDITOR. VS WNL. LEFT GROIN STABLE WITHOUT BLEEDING OR HEMATOMA NOTED. WILL MONITOR.
[2017-05-02] MEDS ORDERED: PLAVIX75 MG PO (11:48)
[2017-05-02 11:56] VITALS: BP 99/70
--- NOTE | 2017-05-02 13:28 | NUR ---
Patient Name: RIKI ROME Admission Status: ER Accout number: [id number] Admission Date: 05-01-2017 : 1965 Admission Diagnosis: Attending: KASSY PRASAD Current LOS: 1 Anticipated DC Date: 05-02-2017 Planned Disposition: Home Primary Insurance: [place] PRIVATE OPTIONS SUZANNE Discharge Planning Comments: * Is the patient Alert and Oriented? Yes 0 * How many steps to enter\exit or inside your home? 3 0 * PCP DR. ASHISH ART AT [facility] 0 * Pharmacy [facility] [place] 0 * Preadmission Environment Home with Family 0 * ADLs Independent 0 * Equipment Nebulizer 0 * Other Equipment NO MEDICAL EQUIPMENT PROVIDER PREFERENCE 0 * List name and contact numbers for known caregivers / representatives who currently or will assist patient after discharge: SHWETA ROME, SPOUSE, 0 * Community resources currently utilized None 0 * Please name any agencies selected above. NONE 0 * Additional services required to return to the preadmission environment? No 0 * Can the patient safely return to the preadmission environment? Yes 0 * Has this patient been hospitalized within the prior 30 days at any hospital? No 0 CM MET WITH PT AND SPOUSE IN ROOM TO DISCUSS DISCHARGE PLANNING AND NEEDS. PT BACK FROM HEART CATH, WAS DROWSY BUT RESPONSIVE. PT REPORTS LIVING AT HOME INDEPENDENTLY WITH SPOUSE; PT'S SON AND DAUGHTER IN LAW ALSO LIVE IN THE HOME. PT HAS A NEBULIZER WITH NO MEDICAL EQUIPMENT PROVIDER PREFERENCE. PT HAS NO OUTSIDE SERVICES ASSISTING IN THE HOME. CM DISCUSSED AVAILABILITY OF HOME HEALTH, REHAB SERVICES AND MEDICAL EQUIPMENT. PT AND SPOUSE DENIED DISCHARGE NEEDS, SPOUSE REPORTS HE WILL BE TRANSPORTING PT HOME AT DISCHARGE TODAY. Devops Consultant: Hector Calloway
--- NOTE | 2017-05-02 14:44 | NUR ---
IV AND TELEMETRY DCD. DC PLANS GIVEN. UNDERSTANDING VOICED. BR UP. GROIN STABLE
--- NOTE | 2017-05-02 14:48 | NUR ---
ESCORTED TO CAR BY W/C.
--- NOTE | 2017-05-11 15:46 | OP ---
PATIENT NAME: RIKI ROME MEDICAL RECORD: [id number] :63 LOCATION:D.M2 D.2116 ADMISSION DATE:05/01/17 SURGEON: LISA PRASAD MD DATE OF OPERATION: 05/01/2017 DATE OF SERVICE: 05/01/2017 PROCEDURES: 1. PTCA stent RCA. 2. Left heart catheterization. 3. Selective coronary angiography. 4. Left ventriculogram. INDICATION: Angina and coronary artery disease. PROCEDURE IN DETAIL: After informed consent was obtained, after detailed explanation of risks, benefits as well as alternative therapies, the patient elected to proceed with angiogram and angioplasty. The right femoral area was prepped and draped in normal sterile fashion. Right femoral artery was cannulated via modified Seldinger technique with placement of 6-Indian sheath. All catheters exchanged through this sheath. FINDINGS: Left ventriculogram was performed in standard 30-degree CORONADO view, reveals good cardiac wall motion throughout all segments. Overall ejection fraction is 55% to 60%. SELECTIVE CORONARY ANGIOGRAPHY: 1. Left main showed no significant angiographic disease. 2. Left anterior descending has mild irregularities, but no flow-limiting stenosis. 3. The left circumflex has 80% stenosis in the mid vessel. 4. The right coronary has an 80% stenosis proximally and then there is a previously placed stent, has up to 70% in-stent restenosis in the mid vessel. PTCA STENT OF THE RIGHT CORONARY: The stent used in the proximal aspect was 3.0 x 15 Integrity. The stent balloon was used for the in-stent restenosis. Result was 0% residual stenosis. OVERALL IMPRESSION: Successful percutaneous transluminal coronary angioplasty stent of the right coronary artery going from 80% initial stenosis to 0% residual. PLAN: PTCA stent of the left circumflex in the near future. TRANSINT:[id number] Voice Confirmation ID: [id number] DOCUMENT ID: [id number] LISA PRASAD MD at 1546 CC: [id number] DICTATION DATE: 05/01/17 1038 CLAIMS VICE PRESIDENT: 05/01/17 1133 DIS IN 05/02/17 [id number] [place] [address]
--- NOTE | 2017-05-11 15:46 | DS ---
PATIENT:RIKI ROME :63 MEDICAL RECORD: [id number] DISCHARGE SUMMARY ADMISSION DATE: 05/01/17 DISCHARGE DATE: 05/02/17 DISCHARGE DIAGNOSES: 1. Angina. 2. Coronary artery disease. 3. Percutaneous transluminal coronary angioplasty stent of left anterior descending and circumflex this admission. HOSPITAL COURSE: Ms. Rome presents with anginal symptomatology, found to have 2-vessel coronary artery disease of the LAD and circumflex, underwent successful PTCA stent of both territories and was discharged home with the addition of Plavix to her medical regimen. She will follow up with [facility] in 1 month. TRANSINT:[id number] Voice Confirmation ID: [id number] DOCUMENT ID: [id number] LISA PRASAD MD at 1546 CC: [id number] DICTATION DATE: 05/02/17 1026 ATTENDANCE OFFICER: 05/02/17 1230 DIS IN 05/02/17 [id number] [place] [address]
--- NOTE | 2017-05-11 15:46 | OP ---
PATIENT NAME: RIKI ROME MEDICAL RECORD: [id number] :63 LOCATION:D.M2 D.2116 ADMISSION DATE:05/01/17 SURGEON: LISA PRASAD MD DATE OF OPERATION: 05/02/2017 PROCEDURES: 1. PTCA stent, left circumflex. 2. Selective coronary angiography. INDICATION: Angina and coronary artery disease. PROCEDURE IN DETAIL: After informed consent was obtained and after detailed explanation of risks, benefits as well as alternative therapies, the patient elected to proceed with angiogram and angioplasty. The left femoral area is prepped and draped in normal sterile fashion. The left femoral artery was cannulated via modified Seldinger technique with placement of 6-[place] Islander sheath. All catheters exchanged through this sheath. FINDINGS: The left circumflex has 80% stenosis in the mid vessel. This was addressed with a 3.0 x 15 mm Integrity stent. Result was 0% residual stenosis. OVERALL IMPRESSION: Successful percutaneous transluminal coronary angioplasty stent of the left circumflex going from 80% initial stenosis to 0% residual. TRANSINT:[id number] Voice Confirmation ID: [id number] DOCUMENT ID: [id number] LISA PRASAD MD at 1546 CC: [id number] DICTATION DATE: 05/02/17 1027 ORNAMENTAL RAIL INSTALLER: 05/02/17 1044 DIS IN 05/02/17 [id number] [place] [address]
== END 2017-05-02 14:48 | disposition home or self-care (01) | DRG 249 ==
LOC: D.ER 07:15 → OBSVTIME 10:56 → D.M2 10:56
PROVIDERS: Emergency Medicine; ADMIT Internal Medicine Interventional Cardiology
PROC: 4A023N7 Measurement of Cardiac Sampling and Pressure, Left Heart, Percutaneous Approach (ICD-10-PCS; 2017-05-01)
PROC: B2111ZZ Fluoroscopy of Multiple Coronary Arteries using Low Osmolar Contrast (ICD-10-PCS; 2017-05-01)
PROC: B2151ZZ Fluoroscopy of Left Heart using Low Osmolar Contrast (ICD-10-PCS; 2017-05-01)
PROC: 02703DZ Dilation of Coronary Artery, One Artery with Intraluminal Device, Percutaneous Approach (ICD-10-PCS; principal; 2017-05-01 09:32)
PROC: 02703DZ Dilation of Coronary Artery, One Artery with Intraluminal Device, Percutaneous Approach (ICD-10-PCS; 2017-05-02)
DX: I25.119 Atherosclerotic heart disease of native coronary artery with unspecified angina pectoris (principal); T82.855A Stenosis of coronary artery stent, initial encounter; Z95.5 Presence of coronary angioplasty implant and graft; Y83.8 Other surgical procedures as the cause of abnormal reaction of the patient, or of later complication, without mention of misadventure at the time of the procedure

== ENCOUNTER 2017-06-22 11:05 | Emergency (ER) | payer SELFPAY ==
[2017-04-30 13:21] VITALS: BMI 25.7
[~2017-06-22 11:05] MED LIST changes: +AMITRIPTYLINE100 MG PO; +BUPROPION HCL150 M1 PO; +HYDROCHLOROTHIA25 MG PO; +HYDROCODON-ACE1 EAC7 PO; +NEURONTIN 300300 MG PO; +OS-CAL500 MG PO; +PLAVIX75 MG PO; +PROVENTIL/2.5 MG/3 M INH; +PULMICORT0.5 MG/21 INH; +TRICOR48 MG PO; +ULTRAM50 MG PO; +ZANTAC150 MG PO; +ZYRTEC10 MG PO
== END 2017-06-22 14:10 | disposition home or self-care (01) ==
LOC: D.ER 11:05
DX: J20.9 Acute bronchitis, unspecified (principal); J44.1 Chronic obstructive pulmonary disease with (acute) exacerbation; I10 Essential (primary) hypertension; K21.9 Gastro-esophageal reflux disease without esophagitis; E11.9 Type 2 diabetes mellitus without complications; F17.200 Nicotine dependence, unspecified, uncomplicated

== ENCOUNTER 2017-07-01 10:18 | Emergency (ER) | payer SELFPAY | END 2017-07-01 16:25 | disposition home or self-care (01) | LOC: D.ER 10:18 | DX: J20.9 Acute bronchitis, unspecified (principal); J06.9 Acute upper respiratory infection, unspecified; J44.9 Chronic obstructive pulmonary disease, unspecified; E11.9 Type 2 diabetes mellitus without complications; K21.9 Gastro-esophageal reflux disease without esophagitis; I10 Essential (primary) hypertension; F17.200 Nicotine dependence, unspecified, uncomplicated ==

== ENCOUNTER 2017-08-14 03:19 | Emergency (ER) | payer MEDICAID ==
[2017-04-30 13:21] VITALS: BMI 25.7
== END 2017-08-14 04:10 | disposition home or self-care (01) ==
LOC: D.ER 03:19
DX: S86.211A Strain of muscle(s) and tendon(s) of anterior muscle group at lower leg level, right leg, initial encounter (principal); X50.0XXA Overexertion from strenuous movement or load, initial encounter; Y93.89 Activity, other specified; Y92.019 Unspecified place in single-family (private) house as the place of occurrence of the external cause; J44.9 Chronic obstructive pulmonary disease, unspecified; E11.9 Type 2 diabetes mellitus without complications; K21.9 Gastro-esophageal reflux disease without esophagitis; I10 Essential (primary) hypertension

== ENCOUNTER 2017-10-10 10:32 | Observation (INO) | payer MEDICAID ==
--- NOTE | ~2017-10-10 | ST ---
PATIENT:RIKI ROME MEDICAL RECORD: [id number] SEX: F LOCATION:[address] ORDER #: ADMISSION DATE: 10/10/17 AGE OF PATIENT: 52 REFERRING PHYSICIAN: INTERPRETING PHYSICIAN: PHYLLIS SANTIZO MD DATE OF SERVICE: 10/12/2017 DESCRIPTION OF PROCEDURE: The patient underwent a Lexiscan direct nuclear stress test without difficulty and completed the protocol. The patient had 12.5 mCi sestamibi injected at 8:30 a.m. and 32 mCi sestamibi injected at 10:40 a.m. The patient had SPECT and gated images performed. Gated imaging showed ejection fraction of 78%. SPECT imaging showed no evidence of ischemia. CONCLUSION: This is a normal Lexiscan directed nuclear stress test. No evidence of ischemia or infarction. Preserved left ventricular systolic function. TRANSINT:[id number] Voice Confirmation ID: [id number] DOCUMENT ID: [id number] PHYLLIS SANTIZO MD CC: [id number] DICTATION DATE: 10/12/17817 TENNIS CAMP INSTRUCTOR: 10/12/17 1325 DIS IN 10/11/17 [address] [place] [address]
--- NOTE | ~2017-10-10 | EC ---
PATIENT:RIKI ROME DATE OF SERVICE: 10/10/17 SEX: F MEDICAL RECORD: [id number] DATE OF : 63 LOCATION:D.M2 D.212 AGE OF PATIENT: 52 ADMISSION DATE: 10/10/17 REFERRING PHYSICIAN: INTERPRETING PHYSICIAN: PHYLLIS SANTIZO MD ECHOCARDIOGRAM REPORT ECHO CHARGES 4 ECHO COMPLETE Date: 10/11 CLINICAL DIAGNOSIS: UNSTABLE ANGINA HX OF CAD/STENTS ECHOCARDIOGRAPHIC MEASUREMENTS (adult normal given) AC root (d.<3.7cm) 3.1 cm LV Septum d (<1.2 cm> 1.1 cm Valve Excursion 1.4 cm LV Septum (systole) 1.3 cm Left Atria (s.<4.0cm> 3.5 cm LVPW d(<1.2cm) 1.2 cm RV (d.<2.3cm) 3.3 cm LVPW (sytole) 1.3 cm LV diastole(<5.6CM) 4.6 cm MV E-F(>70mm/sec) cm LV systole 3.6 cm LVOT Diameter 1.9 cm MV exc.(>10mm) 1.9 cm Est.ejection fraction (50-75%) % DOPPLER: LVIT cm/sec A 62.0 cm/sec E 93.0 cm/sec LA cm/sec RVSP 28 mmHg LVOT 95 cm/sec AOP1/2T m/s Asc. Ao 136 cm/sec RVOT 84 cm/sec RA cm/sec PA 113 cm/sec AV Gradient Peak 7.42 mmHg AV Mean 3.84 mmHg AV Area 2.0 cm MV Gradient Peak 4.67 mmHg MV Mean 1.52 mmHg MV Area cm COMMENTS: Cement Rubber: 2 EDIN ARGUELLES Slp Teacher: 4 Dr. Santizo TAPE# PACS Pericardial Effusion N DATE OF SERVICE: PROCEDURE: Echocardiogram. FINDINGS: 1. Left ventricle has mild left ventricular hypertrophy, ejection fraction 60%. Inflow characteristics are normal. No obvious regional wall motion abnormalities. 2. The left atrium is normal size, shape, and function. 3. The mitral valve is structurally normal, functionally normal with no ECHOCARDIOGRAM REPORT [id number] RIKI ROME significant regurgitation. 4. Tricuspid valve has mild tricuspid regurgitation. RVSP is normal. 5. The right ventricle is mildly enlarged. 6. The right atrium is normal size, shape, and function. 7. The pulmonic valve is normal. CONCLUSIONS: This is a normal echocardiogram with the exception of mild left ventricular hypertrophy. TRANSINT:[id number] Voice Confirmation ID: [id number] DOCUMENT ID: [id number] PHYLLIS SANTIZO MD CC: [id number] DICTATION DATE: 10/12/1707 INSTRUMENT MAKER: 10/12/17 1034 DIS IN 10/11/17 [facility] [address] [id number]
[2017-10-10 11:43] LABS: BASOPHILS 0.2 % (0-2); HEMATOCRIT 42.5 % (36.0-48.0); IMMATURE GRANULOCYTES 0.5 % (0-5); LYMPHOCYTES 25.4 % (15-50); MCHC 32.9 g/dL (31.0-37.0); MCV 88.2 fL (80.0-100.0); MEAN PLATELET VOLUME 12.7 fL (7.4-10.4); MONOCYTES 6.1 % (2-11); NEUTROPHILS 65.8 % (40-80); PLATELET COUNT 117 10x3/uL (130-400); RBC 4.82 10x6/uL (4.00-5.40); RDW 13.5 % (11.5-14.5); WBC 8.8 10x3/uL (4.8-10.8)
[2017-10-10 11:58] LABS: ALBUMIN 3.4 g/dL (3.4-5.0); ALKALINE PHOSPHATASE 124 U/L (46-116); ALT (SGPT) 43 U/L (10-68); CALC OSMOLALITY 282 mosm/kg (275-300); CALCIUM 8.7 mg/dL (8.5-10.1); CARBON DIOXIDE 31.6 mmol/L (21.0-32.0); CHLORIDE - SERUM 105 mmol/L (98-107); CREATININE - SERUM 0.8 mg/dL (0.6-1.3); POTASSIUM - SERUM 3.6 mmol/L (3.5-5.1); PROTEIN - SERUM 7.4 g/dL (6.4-8.2); SODIUM 141 mmol/L (136-145); UREA NITROGEN 7 mg/dL (7-18); eGFR NON AFRICAN AMERICAN 79 mL/min (90-120)
[2017-10-10 12:07] LABS: GLUCOSE 169 mg/dL (74-106)
[2017-10-10 12:09] LABS: CKMB 2.3 U/L (0.0-3.6); CREATINE KINASE 161 UL (21-215); TROPONIN-I < 0.017 ng/mL (0.000-0.060)
[2017-10-10 18:13] LABS: CKMB 1.9 U/L (0.0-3.6); CREATINE KINASE 133 UL (21-215)
[2017-10-10 18:19] LABS: TROPONIN-I < 0.017 ng/mL (0.000-0.060)
[2017-10-10 20:24] VITALS: BP 127/71
[2017-10-11 01:32] LABS: CKMB 1.4 U/L (0.0-3.6); CREATINE KINASE 106 UL (21-215)
[2017-10-11 01:35] LABS: TROPONIN-I < 0.017 ng/mL (0.000-0.060)
[2017-10-11 07:19] LABS: BASOPHILS 0.1 % (0-2); EOSINOPHILS 2.2 % (0-7); HEMATOCRIT 43.3 % (36.0-48.0); HEMOGLOBIN 13.8 g/dL (12-16); IMMATURE GRANULOCYTES 0.1 % (0-5); LYMPHOCYTES 20.8 % (15-50); MCH 28.9 pg (26.0-34.0); MCHC 31.9 g/dL (31.0-37.0); MEAN PLATELET VOLUME 13.5 fL (7.4-10.4); MONOCYTES 8.4 % (2-11); NEUTROPHILS 68.4 % (40-80); PLATELET COUNT 114 10x3/uL (130-400); RBC 4.78 10x6/uL (4.00-5.40); RDW 13.8 % (11.5-14.5); WBC 7.2 10x3/uL (4.8-10.8)
[2017-10-11 07:43] LABS: ALBUMIN 3.2 g/dL (3.4-5.0); ALKALINE PHOSPHATASE 127 U/L (46-116); ALT (SGPT) 41 U/L (10-68); CALC OSMOLALITY 285 mosm/kg (275-300); CALCIUM 8.5 mg/dL (8.5-10.1); CARBON DIOXIDE 29.7 mmol/L (21.0-32.0); CHLORIDE - SERUM 104 mmol/L (98-107); CKMB 1.9 U/L (0.0-3.6); CREATINE KINASE 106 UL (21-215); CREATININE - SERUM 0.9 mg/dL (0.6-1.3); GLUCOSE 177 mg/dL (74-106); POTASSIUM - SERUM 3.5 mmol/L (3.5-5.1); PROTEIN - SERUM 7.2 g/dL (6.4-8.2); SODIUM 142 mmol/L (136-145); TROPONIN-I < 0.017 ng/mL (0.000-0.060); eGFR NON AFRICAN AMERICAN 69 mL/min (90-120)
[2017-10-11 07:44] LABS: MCV 90.6 fL (80.0-100.0)
[2017-10-11 07:47] LABS: UREA NITROGEN 11 mg/dL (7-18)
[2017-10-11 07:51] VITALS: BP 132/81
[2017-10-11] MEDS ORDERED: NEURONTIN 300300 MG PO (09:27)
[2017-10-11 15:31] VITALS: BP 128/76
== END 2017-10-11 17:26 | disposition home or self-care (01) ==
LOC: D.ER 10:32 → D.M2 16:06 → OBSVTIME 16:07 → D.M2 10-11 17:26
PROVIDERS: Emergency Medicine; Family Medicine
DX: R07.9 Chest pain, unspecified (principal); F17.203 Nicotine dependence unspecified, with withdrawal; I25.10 Atherosclerotic heart disease of native coronary artery without angina pectoris; J44.9 Chronic obstructive pulmonary disease, unspecified; E11.9 Type 2 diabetes mellitus without complications; I10 Essential (primary) hypertension

== ENCOUNTER 2017-12-12 11:06 | Outpatient (CLI) | payer MEDICAID ==
[~2017-12-12] VITALS: Ht 162.6 cm; Wt 70.0 kg
--- NOTE | ~2017-12-12 | HEMODYNAMI ---
PATIENT:RIKI ROME MEDICAL RECORD: [id number] : 63 LOCATION:DErikaCAT ADMISSION DATE: 12/12/17 Generatedon:12/12/201713:30 Patient name: RIKI ROME Patient #: [id number] SSN: D OB: 1965 Date of study: 12/12/2017 Page: Of Hemodynamic Procedure Report Patient Data Patient Demographics Procedure consent was obtained First Name: RIKI Gender: Female Last Name: WILD : 1965 Middle Initial: GAYATRI Age: 52 year(s) Patient #: [id number] Race: Additional ID: [id number] Contact details Address: [address] [address] State: [place] City: [facility] Zip code: [address] Past Medical History History of disease Date Diagnosis Comments CAD Allergies Allergen Reaction Date Comments Reported Other allergy 09/16/2015 IBUPROFEN, PRAMIPEXOLE Other allergy 05/01/2017 ibuprofen, pramipexole Other allergy 05/02/2017 Ibuprofen, Mirapex Other allergy 12/12/2017 IBUPROFEN, MIRAPEX, MORTIN Admission Admission Data Admission Date: 12/12/2017 Admission Time: 11:06 Height (in.): 5.4 BSA: 0.29 (m2) Height (cm.): 13.72 BMI: 3737.17 (kg/m2) Weight (lbs.): 155 Weight (kg.): 70.31 Lab Results Lab Result Date: 12/12/2017 Lab Result Time: 0:00 Biochemistry Name Units Result Min Max BUN mg/dl 13 --(--*-)-- 7 18 Creatinine mg/dl 0.9 --(-*--)-- 0.6 1.3 CBC Name Units Result Min Max Hemoglobin g/dl 14.3 --(*---)-- 13.5 17.5 Procedure Procedure Types Cath Procedure Diagnostic Procedure LHC LHC w/Coronaries Sedation Charges Moderate Sedation up to 15 minutes PCI Procedure Coronary Stent Coronary Stent Initial Procedure Description Procedure Date Procedure Date: 12/12/2017 Procedure Start Time: 13:08 Procedure End Time: 13:27 Procedure Staff Name Function Mario Fulton MD Performing Physician Veronica Pichadro RT Monitor Kirill Saini RT Scrub Ethan Oseguera RN Nurse Procedure Data Cath Procedure Fluoroscopy Diagnostic fluoroscopy Total fluoroscopy Time: 0 time: 0 min min Diagnostic fluoroscopy Total fluoroscopy dose: 505 dose: 505 mGy mGy Contrast Material Contrast Material Type Amount (ml) Isovue 370 100 Entry Location Entry Primary Successful Side Size Upsize Upsize Entry Closure Succes sful Closure Location (Fr) 1 (Fr) 2 (Fr) Remarks Device Remarks Femoral Right 5 Fr 6 Fr Exoseal artery Short Estimated blood loss: 10 ml Diagnostic catheters Device Type Used For End Catheter Placement MULTIPACK JL 4.0 5Fr Procedure catheter MULTIPACK 3DRC 5Fr Procedure catheter MULTIPACK Pigtail 5 Fr Procedure catheter Procedure Complications No complications Procedure Medications Medication Administration Route Dosage Oxygen etCO2 Nasal cannula 2 l/min Heparin Flush Bag added to field 2 bags (1000units/500ml NS) 0.9% NaCl I.V. 100 ml/hr Fentanyl I.V. 50 mcg Versed I.V. 1 mg Fentanyl I.V. 50 mcg Versed I.V. 1 mg Fentanyl I.V. 50 mcg Heparin Bolus I.V. 4000 units Integrilin (Bolus I.V. 6.2 ml 2mg/ml) Integrilin (Bolus wasted 3.8 ml 2mg/ml) Plavix P.O. 600 mg Hemodynamics Rest BSA: 0.29 (m2) HGB: 14.3 (g/dl) O2 Consumption: Estimated: 29 (ml/min) O2 Consum ption indexed: Estimated:100 (ml/min/m) Heart Rate: 78 (bpm) Pressure Samples Time Site Value (mmHg) Purpose Heart Use Rate(bpm) 13:13 LV 100/15,17 Snapshot 86 Gradients Valve Time Site Site Mean SEP/DFP Peak To Heart Use 1 2 (mmHg) (sec/min) Peak Rate (mmHg) (bpm) Aortic 13:14 LV AO 86 Snapshots Pre Cath Intra NCS Post Cath Vital Signs Time Heart Resp SPO2 etCO2 NIBP (mmHg) Rhythm Pain Sedation Rate (ipm) (%) (mmHg) Status Level (bpm) 12:48:55 81 17 98 36.7 153/89(123) NSR 0 (11) 10(A) , No pain 12:53:11 83 16 98 33.7 144/86(109) NSR 0 (11) 10(A) , No pain 12:57:25 80 17 98 26.9 125/79(98) NSR 0 (11) 10(A) , No pain 13:01:33 81 17 98 0.7 134/75(101) NSR 0 (11) 10(A) , No pain 13:06:34 75 17 98 32.2 128/76(91) NSR 0 (11) 10(A) , No pain 13:10:44 80 17 96 35.9 124/74(95) NSR 0 (11) 9(A) , No pain 13:14:56 86 16 96 0 116/62(87) NSR 0 (11) 9(A) , No pain 13:19:06 84 16 97 0 106/63(86) NSR 0 (11) 9(A) , No pain 13:23:11 88 17 96 0 111/62(83) NSR 0 (11) 9(A) , No pain 13:26:16 85 17 97 0 111/60(82) NSR 0 (11) 9(A) , No pain Medications Time Medication Route Dose Verified Delivered Reason Notes Effectiveness by by 12:53:07 Oxygen etCO2 2 Mario Long Per physician Nasal l/min [facility] Chele Oseguera RN cannula 12:53:15 Heparin Flush added 2 Mario Long used for Bag to bags [facility] Chele Oseguera RN procedure (1000units/500ml field NS) 12:53:24 0.9% NaCl I.V. 100 Mario Long Per physician ml/hr [facility] Chele Oseguera RN, MD 13:07:05 Fentanyl I.V. 50 Mario Long for sedation [facility] Chele Oseguera RN, MD 13:07:12 Versed I.V. 1 mg Mario Long for sedation [facility] Chele Oseguera RN, MD 13:09:12 Fentanyl I.V. 50 Mario Long for sedation [facility] Chele Oseguera RN, MD 13:09:15 Versed I.V. 1 mg Mario Long for sedation [facility] Chele Oseguera RN, MD 13:17:47 Fentanyl I.V. 50 Mario Long for sedation [facility] Chele Oseguera RN, MD 13:17:56 Heparin Bolus I.V. 4000 Mario Long for units [facility] Chele Oseguera RN anticoagulation MD 13:18:06 Integrilin I.V. 6.2 Mario Long for (Bolus 2mg/ml) ml [facility] Chele Oseguera RN antiplatelet MD therapy 13:18:14 Integrilin wasted 3.8 Mario Long for (Bolus 2mg/ml) ml [facility] Chele Oseguera RN antiplatelet MD therapy 13:28:26 Plavix P.O. 600 Mario Long for mg [facility] Chele Oseguera RN antiplatelet MD therapy Procedure Log Time Note 12:24:30 Time tracking: Regular hours (M-F 7:00 - 5:00) 12:24:34 Plan of Care:Hemodynamics will remain stable., Cardiac rhythm will remain stable., Comfort level will be maintained., Respiratory function will remain adequate., Patient/ family verbilizes understanding of procedure., Procedure tolerated without complication., Recovers from procedure without complications.. 12:24:36 Signed procedure consent form obtained from patient. 12:26:24 Lab Result : BUN 13 mg/dl 12:26:24 Lab Result : Creatinine 0.9 mg/dl 12:26:24 Lab Result : Hemoglobin 14.3 g/dl 12:26:53 Patient allergic to Other allergyIBUPROFEN, MIRAPEX, MORTIN 12:27:38 Patient Height : 5.4 inches 12:27:42 Patient Weight : 155 lbs 12:28:01 Ethan Oseguera RN sent for patient. Start room use. 12:41:38 Patient received from Pre/Post Procedure Room to CCL 2 Alert and oriented. Tansferred to table in Supine position. 12:41:39 Warm blankets applied, and balwinder hugger turned on for patient comfort. 12:41:40 Correct patient and procedure confirmed by team. 12:41:40 ECG and BP/O2 sat monitors applied to patient. 12:47:43 Vital chart was started 12:48:42 Baseline sample Acquired. 12:48:47 Rhythm: sinus rhythm 12:49:38 Full Disclosure recording started 12:49:45 H&P Date Dictated: 12/06/2017 Within 30 days and on chart., H&P Addendum completed by physician on day of procedure. (MUST COMPLETE FOR ALL OUTPATIENTS). 12:49:46 Pre-procedure instructions explained to patient. 12:49:46 Pre-op teaching completed and patient verbalized understanding. 12:49:47 Family in patients room. 12:49:49 Patient NPO since Midnight. 12:49:50 Is the patient allergic to Iodine/contrast media? No. 12:49:53 Is patient on blood thinner?No 12:49:55 Patient diabetic? Yes. 12:49:56 If diabetic: On Metformin? Yes 12:50:01 If on Metformin: Last Dose? 12/09/2017 12:50:33 Patient not . Patient has had hysterectomy. 12:50:36 Previous problem with sedation/anesthesia? No ? 12:50:36 Snore? Yes 12:50:37 Sleep apnea? No 12:50:39 Deviated septum? No 12:50:39 Opens mouth fully? Yes 12:50:40 Sticks out tongue? Yes 12:50:43 Airway obstruction? Yes COPD 12:50:45 Dentures? No ? 12:50:48 Pre procedure: right dorsailis pedis pulse 2+ Normal; easily identifiable; not easily obliterated 12:50:50 Patient pain scale 0/10 ?. 12:51:00 IV patent on arrival in left forearm with 0.9% NaCl at [facility]. 12:51:02 Lab results completed and on chart. 12:51:04 Right groin area was prepped with chlora-prep and draped in sterile fashion 12:51:05 Alarms reviewed by R. N. 12:51:06 Sharps counted by scrub and verified by R.N. 12:51:08 Use device set Femoral Dx 12:51:09 Bag Decanter (2002S) opened to sterile field. 12:51:10 ACIST Syringe (09685) opened to sterile field. 12:51:11 ACIST Manifold (50090) opened to sterile field. 12:51:11 ACIST Hand Control (61813) opened to sterile field. 12:51:12 Tegaderm 4 x 4 (1626W) opened to sterile field. 12:51:13 Medline Cath Pack ([id number]) opened to sterile field. 12:51:14 DIAGNOSTIC WIRE .035 260cm J wire (317840) opened to sterile field. 12:51:15 DIAGNOSTIC Multipack 5Fr catheter set (ZH3914) opened to sterile field. 12:51:16 SHEATH Prelude 5Fr 0.035 (ZUW-1R-37-035) opened to sterile field. 12:53:07 Oxygen 2 l/min etCO2 Nasal cannula was administered by Ethan Oseguera RN; Per physician; 12:53:15 Heparin Flush Bag (1000units/500ml NS) 2 bags added to field was administered by Ethan Oseguera RN; used for procedure; 12:53:24 0.9% NaCl 100 ml/hr I.V. was administered by Ethan Oseguera RN; Per physician; 13:04:36 --------ALL STOP TIME OUT------ 13:04:36 Final Timeout: patient, procedure, and site verified with staff and physician. All members of the team are in agreement. 13:04:39 Right groin site verified by team. 13:04:43 Physical assessment completed. ASA score P 2 - A patient with mild systemic disease as per Mario Fulton MD. 13:04:46 Sedation plan: IV Moderate Sedation Medication:Versed, Fentanyl 13:07:05 Fentanyl 50 mcg I.V. was administered by Ethan Oseguera RN; for sedation; 13:07:12 Versed 1 mg I.V. was administered by Ethan Oseguera RN; for sedation; 13:08:34 Zero performed for pressure channel P1 13:08:38 Zero performed for pressure channel P1 13:08:51 Procedure started. 13:08:54 Local anesthetic to right femoral artery with Lidocaine 2% by Mario Fulton MD.INITIAL ACCESS ONLY 13:09:12 Fentanyl 50 mcg I.V. was administered by Ethan Oseguera RN; for sedation; 13:09:15 Versed 1 mg I.V. was administered by Ethan Oseguera RN; for sedation; 13:09:32 A 5 Fr sheath was inserted into the Right Femoral artery 13:09:45 A MULTIPACK JL 4.0 5Fr catheter was advanced over the wire and used for Procedure. 13:11:00 LCA angiography performed. 13:11:21 Catheter removed. 13:11:29 A MULTIPACK 3DRC 5Fr catheter was advanced over the wire and used for Procedure. 13:12:27 RCA angiography performed. 13:12:42 Catheter removed. 13:12:48 A MULTIPACK Pigtail 5 Fr catheter was advanced over the wire and used for Procedure. 13:13:09 LV gram done using CORONADO 13:13:15 Injector settings: Ml/sec: 10, Volume: 20, 13:13:38 LV hemodynamics recorded. 13:13:49 EF : 55 % 13:14:02 Catheter removed. 13:14:10 SHEATH 6FR [place] (YDM574) opened to sterile field. 13:14:24 BMW 300cm Straight [place] 2 wire (1070940) opened to sterile field. 13:14:33 GUIDE 6FR AR 1.0 SH catheter ([id number]) opened to sterile field. 13:14:42 Sheath upsized to a 6 Fr Short. 13:15:04 INFLATOR Merit BasixCompak (IM2753) opened to sterile field. 13:15:47 6 Fr AR 1 SH guide catheter was inserted over the wire 13:17:29 BMW 300 wire advanced. 13:17:47 Fentanyl 50 mcg I.V. was administered by Ethan Oseguera RN; for sedation; 13:17:56 Heparin Bolus 4000 units I.V. was administered by Ethan Oseguera RN; for anticoagulation; 13:18:06 Integrilin (Bolus 2mg/ml) 6.2 ml I.V. was administered by Ethan Oseguera RN; for antiplatelet therapy; 13:18:14 Integrilin (Bolus 2mg/ml) 3.8 ml wasted was administered by Ethan Oseguera RN; for antiplatelet therapy; 13:19:16 Wire advanced across lesion. 13:22:37 Place stent Inflation Number: 1 A CLAUDY RX 3.0 x 23 stent ([id number]) was prepped and advanced across the Prox RCA. The stent was deployed at 14 TADEO for 0:25 (min:sec). 13:22:58 Stent catheter was removed intact over wire. 13:22:59 Wire removed. 13:23:00 Guide catheter removed. 13:23:15 EXOSEAL 6Fr (EX600) opened to sterile field. 13:23:23 Sheath removed intact; hemostasis achieved with Exoseal to the Right Femoral artery. 13:24:15 Procedure ended.(Physican Out) 13:25:21 Fluoroscopy dose: 505 mGy 13:25:21 Flurop Dose total: 505 13:25:23 Fluoroscopy time 00.00 minutes. 13:25:26 Contrast amount:Isovue 370 100ml. 13:25:30 Post-op/insertion site Right Femoral artery dressed using a 4 x 4 and Tegaderm. 13:25:34 Post right femoral artery:stable, soft, clean and dry 13:25:37 Post-procedure physical assessment completed. ASA score P 2 - A patient with mild systemic disease as per Mario Fulton MD. 13::41 Post procedure rhythm: sinus rhythm 13::44 Estimated blood loss: 10 ml 13::45 Post procedure instruction explained to patient.Patient verbalizes understanding. 13:25:45 Patient needs reinforcement of post procedure teaching. 13::44 Procedure type changed to Cath procedure, Diagnostic procedure, LHC, LHC w/Coronaries, Sedation Charges, Moderate Sedation up to 15 minutes, PCI procedure, Coronary Stent, Coronary Stent Initial 13:27:25 Procedure and supply charges have been captured, reviewed, submitted and are correct. 13:27:28 Procedure Complication : No complications 13:27:30 Vital chart was stopped 13:27:31 See physician's report for complete and final results. 13:27:33 Report given to Pre/Post Procedure Room. 13:27:35 Patient transfered to Pre/Post Procedure Room with Bed. 13:27:37 Procedure ended. 13:27:37 Full Disclosure recording stopped 13::41 End room use (Document Last) 13:28:26 Plavix 600 mg P.O. was administered by Ethan Oseguera RN; for antiplatelet therapy; Intervention Summary Intervention Notes Time ActionType Lesion and Equipment Action# Pressure Duration Attributes Used 13::37 Place stent Prox RCA CLAUDY RX 1 14 00:25 3.0 x 23 stent ([id number]) Device Usage Item Name Manufacture Quantity Catalog Number Hospital Part Current Minimal Lot# / Charge Number Stock Stock Serial# Code Bag Decanter Microtek 1 [id number] 21246 776145 5 () Medical Inc. ACIST Syringe Acist 1 72716 250707 490092 111989 20 (92755) Medical Systems Inc ACIST Manifold Acist 1 12094 201166 531884 557514 5 (14993) Medical Systems Inc ACIST Hand Acist 1 56318 873494 033440 259996 5 Control (66150) Medical Systems Inc Tegaderm 4 x 4 3M 1 1626W 623234 451663 996961 5 (1626W) Medline Cath Cardinal 1 [id number] 061839 87915 445731 5 Pack Health ([id number]) DIAGNOSTIC WIRE St Juan 1 219598 193715 664411 455978 30 .035 260cm J wire (867631) DIAGNOSTIC Cardinal 1 ZS4904 336822 98315 541756 30 Multipack 5Fr Health catheter set (OX4677) SHEATH Prelude Merit 1 [id number]-3B-21-035 495420 295526 460568 5 5Fr 0.035 Medical ([id number]-6Z-68-035) MULTIPACK JL Cardinal 1 094365 5 4.0 5Fr Health catheter MULTIPACK 3DRC Cardinal 1 435876 5 5Fr catheter Health MULTIPACK Cardinal 1 248383 5 Pigtail 5 Fr Health catheter SHEATH 6FR Terumo 1 TXI352 193036 440393 100157 40 [place] (PCX530) BMW 300cm Manuel 1 4262141 311269 788059 288991 5 Straight Vascular Long Edd[place] 2 wire (2872431) GUIDE 6FR AR Medtronic 1 [id number] 251568 95575 159540 1 1.0 SH catheter ([id number]) INFLATOR Merit Merit 1 DY4918 580474 949250 970082 15 [facility] Medical (YE7003) CLAUDY RX 3.0 x Manuel 1 [id number] 824040 9607978 945170 5 [id number] 23 stent Vascular ([id number]) EXOSEAL 6Fr Cardinal 1 EX600 868671 835986 082248 10 (EX600) Health Signature Audit [place] Stage Time Signature Unsigned Intra-Procedure 12/12/2017 Veronica Pichardo 1:30:36 PM RT(R) Signatures Monitor : Veronica Pichardo Signature : RT Date : Time : [facility] [address] [place] [address]
--- NOTE | ~2017-12-12 | OP ---
PATIENT NAME: RIKI ROME MEDICAL RECORD: [id number] :63 LOCATION:D.CAT ADMISSION DATE: SURGEON: NAVARRO WALLS MD DATE OF OPERATION: 12/12/2017 PROCEDURE: Left heart catheterization, selective coronary angiography plus stenting to the right coronary, right femoral artery approach. CATHETERS: A 5-Citizen Of [place] sheath, 5/4 left and right Xiomara, 5/4 pig. The procedure was well tolerated. The patient returned to gupta. Sheath was removed. ExoSeal device placed. FINDINGS: Left ventriculography in 30-degree CORONADO view: Normal wall motion and normal systolic function. CORONARY ANATOMY: LEFT MAIN: Left main is free of disease. LAD: LAD is free of disease in the diagonal system. CIRCUMFLEX: Area of previous stenting is widely patent. No progression of false pass disease. RIGHT CORONARY ARTERY: Shows diffuse stenosis in proximal portion of the previously placed stents. IMPRESSION: Restenosis of right coronary. PLAN: Intervention momentarily. DESCRIPTION OF PROCEDURE: A 5-[place]izen Of [place] sheath was exchanged for a 6-[place]izen [place] sheath. AR1 guiding catheter provided with side holes good guide catheter support followed by 300 cm Whisper wire was placed across tightly occluded right down the distal portion of the vessel. Stent deployed was a 3.0 x 23 mm drug-eluting stent up to 14 atmospheres for 45 seconds. Final angiography shows excellent resolution of a diffuse 90% stenosis, no significant residual. DALIA flow was 3 throughout the procedure. Plavix was loaded in the lab. Sheath was closed with ExoSeal device. TRANSINT:[id number] Voice Confirmation ID: [id number] DOCUMENT ID: [id number] NAVARRO WALLS MD at 1505 CC: [id number] DICTATION DATE: 12/12/17 1333 CLIENT SUPPORT REPRESENTATIVE: 12/12/17 1408 DEP CLI 12/12/17 [facility] [address] [facility] [place] [address]
[2017-12-12] MEDS ORDERED: K-TAB10 MEQ (11:29)
[2017-12-12 11:38] VITALS: BP 125/73; Ht 162.6 cm; Wt 70.0 kg
[2017-12-12 11:40] LABS: BASOPHILS 0.3 % (0-2); EOSINOPHILS 1.6 % (0-7); HEMATOCRIT 43.6 % (36.0-48.0); HEMOGLOBIN 14.3 g/dL (12-16); IMMATURE GRANULOCYTES 0.3 % (0-5); LYMPHOCYTES 24.3 % (15-50); MCH 29.1 pg (26.0-34.0); MCHC 32.8 g/dL (31.0-37.0); MCV 88.8 fL (80.0-100.0); MEAN PLATELET VOLUME 12.5 fL (7.4-10.4); MONOCYTES 5.4 % (2-11); NEUTROPHILS 68.1 % (40-80); PLATELET COUNT 134 10x3/uL (130-400); RBC 4.91 10x6/uL (4.00-5.40); RDW 13.3 % (11.5-14.5); WBC 9.3 10x3/uL (4.8-10.8)
[2017-12-12 11:54] LABS: ANION GAP 10.3 mmol/L (8-16); CALCIUM 8.8 mg/dL (8.5-10.1); CARBON DIOXIDE 28.4 mmol/L (21.0-32.0); CREATININE - SERUM 0.9 mg/dL (0.6-1.3); POTASSIUM - SERUM 3.7 mmol/L (3.5-5.1)
[2017-12-12] MEDS ORDERED: PLAVIX75 MG PO (13:52)
== END 2017-12-12 17:31 | disposition home or self-care (01) ==
LOC: D.CATH 11:06
PROVIDERS: Internal Medicine Interventional Cardiology
DX: I25.119 Atherosclerotic heart disease of native coronary artery with unspecified angina pectoris (principal); T82.855A Stenosis of coronary artery stent, initial encounter; Z01.812 Encounter for preprocedural laboratory examination

== ENCOUNTER 2017-12-25 20:07 | Emergency (ER) | payer MEDICAID ==
[~2017-12-25] VITALS: Ht 162.6 cm; Wt 70.0 kg
[~2017-12-25 20:07] MED LIST changes: +K-TAB10 MEQ
[2017-12-25 20:16] VITALS: Ht 162.6 cm; Wt 70.0 kg
[2017-12-25] MEDS ORDERED: CLEOCIN HCL300 MG PO (21:27)
[2017-12-25] MEDS ORDERED: TYLENOL W/CODEI1 TAB PO (21:27)
[2017-12-25 22:10] VITALS: BP 145/77
== END 2017-12-25 22:11 | disposition home or self-care (01) ==
LOC: D.ER 20:07
DX: L08.9 Local infection of the skin and subcutaneous tissue, unspecified (principal); E11.9 Type 2 diabetes mellitus without complications; I10 Essential (primary) hypertension; J44.9 Chronic obstructive pulmonary disease, unspecified; K21.9 Gastro-esophageal reflux disease without esophagitis

== ENCOUNTER 2018-02-04 09:54 | Emergency (ER) | payer MEDICAID ==
[~2018-02-04] VITALS: Ht 162.6 cm; Wt 69.1 kg
[~2018-02-04 09:54] MED LIST changes: +CLEOCIN HCL300 MG PO; +TYLENOL W/CODEI1 TAB PO
[2018-02-04 10:15] VITALS: Ht 162.6 cm; Wt 69.1 kg
[2018-02-04] MEDS ORDERED: ZITHROMAX250 MG PO (11:45)
[2018-02-04] MEDS ORDERED: PREDNISONE10 MG PO (11:45)
[2018-02-04] MEDS ORDERED: BUTALB-APAP-CA1 EACH PO (11:45)
[2018-02-04 12:20] VITALS: BP 134/72
== END 2018-02-04 12:21 | disposition home or self-care (01) ==
LOC: D.ER 09:54
DX: J01.90 Acute sinusitis, unspecified (principal); E11.9 Type 2 diabetes mellitus without complications; H92.03 Otalgia, bilateral; R51 Headache; I10 Essential (primary) hypertension; J44.9 Chronic obstructive pulmonary disease, unspecified; K21.9 Gastro-esophageal reflux disease without esophagitis; F17.200 Nicotine dependence, unspecified, uncomplicated

== ENCOUNTER 2018-03-30 07:03 | Emergency (ER) | payer MEDICAID ==
[~2018-03-30 07:03] MED LIST changes: +BUTALB-APAP-CA1 EACH PO; +PREDNISONE10 MG PO; +ZITHROMAX250 MG PO
[2018-03-30 07:10] VITALS: BP 164/062; Ht 162.6 cm
[2018-03-30 07:55] LABS: BASOPHILS 0.1 % (0-2); EOSINOPHILS 2.7 % (0-7); HEMATOCRIT 43.5 % (36.0-48.0); HEMOGLOBIN 14.3 g/dL (12-16); IMMATURE GRANULOCYTES 0.3 % (0-5); LYMPHOCYTES 22.9 % (15-50); MCH 29.5 pg (26.0-34.0); MCHC 32.9 g/dL (31.0-37.0); MCV 89.7 fL (80.0-100.0); MEAN PLATELET VOLUME 12.9 fL (7.4-10.4); MONOCYTES 6.6 % (2-11); NEUTROPHILS 67.4 % (40-80); PLATELET COUNT 137 10x3/uL (130-400); RBC 4.85 10x6/uL (4.00-5.40); RDW 13.4 % (11.5-14.5); WBC 9.7 10x3/uL (4.8-10.8)
[2018-03-30 08:03] LABS: ALBUMIN 3.2 g/dL (3.4-5.0); ALKALINE PHOSPHATASE 115 U/L (46-116); ALT (SGPT) 36 U/L (10-68); BILIRUBIN - TOTAL 0.27 mg/dL (0.2-1.3); C-REACTIVE PROTEIN 3.7 mg/dL (0.0-0.9); CALC OSMOLALITY 284 mosm/kg (275-300); CALCIUM 8.7 mg/dL (8.5-10.1); CARBON DIOXIDE 26.6 mmol/L (21.0-32.0); CHLORIDE - SERUM 101 mmol/L (98-107); CREATININE - SERUM 0.7 mg/dL (0.6-1.3); POTASSIUM - SERUM 3.7 mmol/L (3.5-5.1); PROTEIN - SERUM 7.2 g/dL (6.4-8.2); SODIUM 137 mmol/L (136-145); UREA NITROGEN 8 mg/dL (7-18); eGFR NON AFRICAN AMERICAN > 90 mL/min (90-120)
[2018-03-30 08:04] LABS: GLUCOSE 336 mg/dL (74-106)
[2018-03-30] MEDS ORDERED: BACTRIM DS1 TAB PO (09:20)
== END 2018-03-30 09:45 | disposition home or self-care (01) ==
LOC: D.ER 07:03
PROVIDERS: Family Medicine
DX: L03.211 Cellulitis of face (principal); E11.9 Type 2 diabetes mellitus without complications; I10 Essential (primary) hypertension; J44.9 Chronic obstructive pulmonary disease, unspecified; K21.9 Gastro-esophageal reflux disease without esophagitis; F17.200 Nicotine dependence, unspecified, uncomplicated

== ENCOUNTER 2018-04-14 07:10 | Emergency (ER) | payer MEDICAID ==
[~2018-04-14] VITALS: Ht 162.6 cm; Wt 68.2 kg
[~2018-04-14 07:10] MED LIST changes: +BACTRIM DS1 TAB PO
[2018-04-14 07:14] VITALS: Ht 162.6 cm; Wt 68.2 kg
[2018-04-14] MEDS ORDERED: CLEOCIN HCL300 MG PO (09:08)
[2018-04-14 09:30] VITALS: BP 136/89
== END 2018-04-14 09:30 | disposition home or self-care (01) ==
LOC: D.ER 07:10
DX: L03.211 Cellulitis of face (principal); H40.9 Unspecified glaucoma; E11.9 Type 2 diabetes mellitus without complications; I10 Essential (primary) hypertension; J44.9 Chronic obstructive pulmonary disease, unspecified; K21.9 Gastro-esophageal reflux disease without esophagitis; F17.200 Nicotine dependence, unspecified, uncomplicated

== ENCOUNTER 2018-12-06 08:02 | Inpatient (IN) | payer MEDICAID ==
[~2018-12-06] VITALS: Ht 162.6 cm; Wt 66.8 kg
[2018-12-06] VITALS (12 sets, daily range): BP systolic 79–160; BP diastolic 44–94; BMI 25.3
[~2018-12-06 08:02] MED LIST changes: -K-TAB10 MEQ; +K-TAB10 MEQ PO
[2018-12-06 08:32] LABS: BASOPHILS 0.2 % (0-2); EOSINOPHILS 2.1 % (0-7); HEMATOCRIT 45.6 % (36.0-48.0); HEMOGLOBIN 15.3 g/dL (12-16); IMMATURE GRANULOCYTES 0.2 % (0-5); LYMPHOCYTES 26.3 % (15-50); MCH 29.3 pg (26.0-34.0); MCHC 33.6 g/dL (31.0-37.0); MCV 87.4 fL (80.0-100.0); MEAN PLATELET VOLUME 12.4 fL (7.4-10.4); MONOCYTES 5.9 % (2-11); NEUTROPHILS 65.3 % (40-80); PLATELET COUNT 124 10x3/uL (130-400); RBC 5.22 10x6/uL (4.00-5.40); RDW 13.3 % (11.5-14.5); WBC 8.8 10x3/uL (4.8-10.8)
[2018-12-06 08:35] LABS: APTT 25.8 SECONDS (22.8-39.4); INR 1.01 (0.85-1.17); PROTIME 12.8 SECONDS (11.6-15.0)
[2018-12-06 08:42] LABS: ALBUMIN 3.6 g/dL (3.4-5.0); ALKALINE PHOSPHATASE 114 U/L (46-116); ALT (SGPT) 34 U/L (10-68); BILIRUBIN - TOTAL 0.19 mg/dL (0.2-1.3); CALC OSMOLALITY 285 mosm/kg (275-300); CALCIUM 9.1 mg/dL (8.5-10.1); CARBON DIOXIDE 30.8 mmol/L (21.0-32.0); CHLORIDE - SERUM 102 mmol/L (98-107); CREATININE - SERUM 0.9 mg/dL (0.6-1.3); POTASSIUM - SERUM 3.7 mmol/L (3.5-5.1); PROTEIN - SERUM 7.7 g/dL (6.4-8.2); SODIUM 140 mmol/L (136-145); UREA NITROGEN 11 mg/dL (7-18); eGFR NON AFRICAN AMERICAN 69 mL/min (90-120)
[2018-12-06 08:48] LABS: GLUCOSE 248 mg/dL (74-106); LIPASE 1395 U/L (73-393); MAGNESIUM - SERUM 1.7 mg/dL (1.8-2.4); PRO BNP 72 pg/mL (0-125); TROPONIN-I < 0.017 ng/mL (0.000-0.060)
--- NOTE | 2018-12-06 09:00 | NUR ---
FOLLOWING FIRST PRN SL NITRO, PT STATES NO CHANGE IN CP. SECOND SL PRN NITRO ADMINISTERED AT 0844. PT'S FAMILY MEMBER APPROACHED THIS NURSE IN [place] AND STATED THAT PT WAS SUDDENLY FEELING MUCH WORSE AT APPROX. 0851. PT REASSESSED, BP SIGNIFICANTLY DROPPED TO 79/44. PT C/O CP BEING WORSE AND INCREASED NAUSEA. PT WAS PLACED IN MODIFIED TRENDELENBERG POSITION AND O2 VIA NC PLACED ON PT AT 2LPM. EDP NOTIFIED OF CHANGES. PT TRENDING BACK UPWARD, WILL CONTINUE TO MONITOR. FAMILY MEMBER AT BEDSIDE. CALL LIGHT IN REACH.
--- NOTE | 2018-12-06 09:40 | NUR ---
PT LEAVING ED VIA STRETCHER, BEING TRANSPORTED TO MEDICAL IMAGING DEPT. FOR ORDERED TEST. NO SIGNS OF DISTRESS NOTED WHEN LEAVING.
--- NOTE | 2018-12-06 09:58 | NUR ---
PT RETURNED TO THE ED AT THIS TIME. NO SIGNS OF DISTRESS.
--- NOTE | 2018-12-06 10:35 | NUR ---
RECIVED FROM ER PER WC TO FAMILIA 211. ADMIT ASSESSMENT PER RN
[2018-12-06 13:52] LABS: APPEARANCE CLEAR (CLEAR); BILIRUBIN NEGATIVE (NEGATIVE); COLOR STRAW (YELLOW); GLUCOSE 250 mg/dL (NEGATIVE); KETONE NEGATIVE (NEGATIVE); NITRITE NEGATIVE (NEGATIVE); PROTEIN NEGATIVE (NEGATIVE); UROBILINOGEN NORMAL (NORMAL)
--- NOTE | 2018-12-06 18:25 | NUR ---
WITHOUT CHANGES OR DISTRESS NOTED AT THIS TIME.
--- NOTE | 2018-12-06 19:30 | NUR ---
RESUMING PATIENT CARE. PATIENT RESTING COMFORTABLY IN BED, APPEARS TO BE SLEEPING. RESPIRATIONS ARE EVEN AND UNLABORED. NO S/S OF DISTRESS. CALL LIGHT WITHIN REACH. WILL CPOC.
[2018-12-07] VITALS: BP 115/66
[2018-12-07 04:30] VITALS: BP 118/66
[2018-12-07 05:27] LABS: BASOPHILS 0.2 % (0-2); EOSINOPHILS 2.2 % (0-7); HEMATOCRIT 40.8 % (36.0-48.0); HEMOGLOBIN 13.4 g/dL (12-16); IMMATURE GRANULOCYTES 0.2 % (0-5); LYMPHOCYTES 30.3 % (15-50); MCH 29.1 pg (26.0-34.0); MCHC 32.8 g/dL (31.0-37.0); MCV 88.7 fL (80.0-100.0); MEAN PLATELET VOLUME 12.4 fL (7.4-10.4); MONOCYTES 6.7 % (2-11); NEUTROPHILS 60.4 % (40-80); PLATELET COUNT 125 10x3/uL (130-400); RDW 13.5 % (11.5-14.5); WBC 8.1 10x3/uL (4.8-10.8)
[2018-12-07 05:45] LABS: ALKALINE PHOSPHATASE 93 U/L (46-116); ALT (SGPT) 32 U/L (10-68); CALCIUM 8.1 mg/dL (8.5-10.1); CARBON DIOXIDE 28.5 mmol/L (21.0-32.0); CHLORIDE - SERUM 104 mmol/L (98-107); CHOL - HDL RATIO 6.9 ratio (2.3-4.1); CHOLESTEROL, TOTAL 179 mg/dL (0-200); CREATININE - SERUM 0.9 mg/dL (0.6-1.3); HDL CHOLESTEROL 26 mg/dL (32-96); LIPASE 194 U/L (73-393); POTASSIUM - SERUM 3.4 mmol/L (3.5-5.1); PROTEIN - SERUM 6.4 g/dL (6.4-8.2); SODIUM 140 mmol/L (136-145); UREA NITROGEN 11 mg/dL (7-18); eGFR NON AFRICAN AMERICAN 69 mL/min (90-120)
[2018-12-07 05:52] LABS: CALC OSMOLALITY 288 mosm/kg (275-300); GLUCOSE 303 mg/dL (74-106); TRIGLYCERIDE 649 mg/dL (30-200)
--- NOTE | 2018-12-07 08:11 | NUR ---
PT ALERT AND ORIENTED X4 SITTING UP IN BED. RR EVEN AND UNLABORED NO S/S OF DISTRESS. PT SATES SHE WOULD LIKE TO GO HOME. BED LOW CALL LIGHT WITHIN REACH. WILL CONTINUE TO MONITOR.
[2018-12-07 08:32] VITALS: BP 140/77
[2018-12-07 09:03] VITALS: Ht 162.6 cm; Wt 66.8 kg
--- NOTE | 2018-12-07 11:09 | NUR ---
PT STATES THAT THERE WAS NOTHING WRONG WITH HER AND THAT SHE WAS GOING TO LEAVE. LIYA CROOKS NOTIFIED. CARDIOLOGY SAW HER AND WANTS FOLLOW UP. ASKED PT TO WAIT FOR DC PAPERWORK. PT AGREED. IN ROOM. WILL CONTINUE TO MONITOR.
--- NOTE | 2018-12-07 12:04 | NUR ---
PT DC'D HOME WITH INSTRUCTIONS DISCHARGE INSTRUCTIONS AND FOLLOW UP APPOINTMENTS. PT VITALS STABLE AT THIS TIME.
--- NOTE | 2018-12-07 15:10 | MORECARE ---
CASE MANAGEMENT DISCHARGE SUMMARY PATIENT: RIKI ROME UNIT: [id number] ADM DATE: 12/06/18 AGE: 53 : 63 SEX: F ROOM/BED: D.9261 AUTHOR: LAINEY,DOC PHYSICIAN: REFERRING PHYSICIAN: BHAVESH MEANS MD DATE OF SERVICE: 12/07/18 Discharge Plan Patient Name: RIKI ROME Facility: [facility]:Julian : 1965 Planned Disposition: Home Anticipated Discharge Date: 12/07/18 Discharge Date: 12/07/2018 Expected LOS: 1 Initial Reviewer: [email or web address] Initial Review Date: 12/07/2018 Generated: 12/07/18 4:10 pm Comments DCP- Discharge Planning Updated by [email or web address]: Hector Calloway on 12/07/18 2:[address] Patient Name: RIKI ROME Admission Status: ER Accout number: [id number] Admission Date: 12-06-2018 : 1965 Admission Diagnosis: Attending: BHAVESH GUTIERREZ Current LOS: 1 Anticipated DC Date: 12-07-2018 Planned Disposition: Home Primary Insurance: [place] [employer] [facility] Discharge Planning Comments: CM MET WITH PT IN ROOM TO DISCUSS DISCHARGE PLANNING AND NEEDS. PT REPORTS LIVING AT HOME INDEPENDENTLY WITH HER SPOUSE. PT HAS A NEBULIZER WITH NO MEDICAL EQUIPMENT PROVIDER PREFERENCE. PT HAS NO OUTSIDE SERVICES ASSISTING IN THE HOME. CM DISCUSSED AVAILABILITY OF HOME HEALTH, REHAB SERVICES AND MEDICAL EQUIPMENT. PT DENIES DISCHARGE NEEDS, REPORTS HER SPOUSE WILL PICK HER UP FOR DISCHARGE HOME. Occupational Therapist Rehab Manager: Hector Calloway DCPIA - Discharge Planning Initial Assessment Updated by [email or web address]: Hector Calloway on 12/07/18 3:03 pm * Is the patient Alert and Oriented? Yes * How many steps to enter\exit or inside your home? * PCP DR. JACQUELINE CHI * Pharmacy [facility]. * Preadmission Environment Home with Family * ADLs Independent * Equipment Nebulizer * Other Equipment NO MEDICAL EQUIPMENT PROVIDER PREFERENCE * List name and contact numbers for known caregivers / representatives who currently or will assist patient after discharge: SHWETA ROME, SPOUSE, * Verbal permission to speak to the caregivers and representatives has been obtained from the patient. N/A * Community resources currently utilized None * Please name any agencies selected above. none * Additional services required to return to the preadmission environment? No * Can the patient safely return to the preadmission environment? Yes * Has this patient been hospitalized within the prior 30 days at any hospital? No Patient Name: RIKI ROME Page [id number] at 1510 All edits/amendments must be made on the electronic document DICTATION DATE: 12/07/18 151 BUSINESS PROGRAMMER: LOU 12/07/18 1510 RPT#: [id number] DC DATE:12/07/18 STATUS: DIS IN [facility] [address] [place] [address] END OF REPORT
== END 2018-12-07 12:06 | disposition home or self-care (01) | DRG 313 ==
LOC: D.ER 08:02 → D.M2 09:57
PROVIDERS: Family Medicine; ADMIT Family Medicine; ATTEND Family Medicine
DX: R07.9 Chest pain, unspecified (principal); I25.10 Atherosclerotic heart disease of native coronary artery without angina pectoris; J44.9 Chronic obstructive pulmonary disease, unspecified; E11.9 Type 2 diabetes mellitus without complications; I10 Essential (primary) hypertension; K21.9 Gastro-esophageal reflux disease without esophagitis; R93.89 Abnormal findings on diagnostic imaging of other specified body structures; Z87.891 Personal history of nicotine dependence

== ENCOUNTER → 2018-12-18 10:14 | Outpatient (CLI) | payer MEDICAID ==
[2018-12-07 09:03] VITALS: BMI 25.3
== END | disposition home or self-care (01) ==
LOC: D.HCCARDIO 10:14
PROVIDERS: ATTEND Internal Medicine Cardiovascular Disease
DX: I25.110 Atherosclerotic heart disease of native coronary artery with unstable angina pectoris (principal); I10 Essential (primary) hypertension

== ENCOUNTER 2019-01-11 11:04 | Outpatient (CLI) | payer MEDICAID ==
[~2019-01-11] VITALS: Ht 162.6 cm; Wt 67.7 kg
--- NOTE | ~2019-01-11 | HEMODYNAMI ---
PATIENT:RIKI ROME MEDICAL RECORD: [id number] : 63 LOCATION:D.CAT ADMISSION DATE: 01/11/19 Generatedon:01/11/201913:17 Patient name: RIKI ROME Patient #: [id number] SSN: [id number] : 1965 Date of study: 01/11/2019 Page: Of Hemodynamic Procedure Report Patient Data Patient Demographics Procedure consent was obtained First Name: RIKI Gender: Female Last Name: WILD : 1965 [facility] Initial: GAYATRI Age: 53 year(s) Patient #: [id number] Race: SSN: [id number] Additional ID: [id number] Contact details Address: [address] [place] [address] [address] State: [place] City: [facility] Zip code: [address] Past Medical History History of disease Date Diagnosis Comments CAD Allergies Allergen Reaction Date Comments Reported Other allergy 09/16/2015 IBUPROFEN, PRAMIPEXOLE Other allergy 05/01/2017 ibuprofen, pramipexole Other allergy 05/02/2017 Ibuprofen, Mirapex Other allergy 12/12/2017 IBUPROFEN, MIRAPEX, MORTIN Other allergy 01/11/2019 IBUPROFEN, MIRAPEX, MOTRIN Admission Admission Data Admission Date: 01/11/2019 Admission Time: 11:04 Arrival Date: 01/11/2019 Arrival Time: 0:00 Insurance Payor: Private health insurance [facility] #: [id number] Height (in.): 63.78 BSA: 1.73 (m2) Height (cm.): 162 BMI: 25.91 (kg/m2) Weight (lbs.): 149.92 Weight (kg.): 68 Lab Results Lab Result Date: 01/11/2019 Lab Result Time: 0:00 Biochemistry Name Units Result Min Max BUN mg/dl 10 --(-*--)-- 7 18 Creatinine mg/dl 0.9 --(-*--)-- 0.6 1.3 eGFR ml/min 69 *-(----)-- 90 120 NONAFRICAN CBC Name Units Result Min Max Hematocrit % 42.1 --(*---)-- 42 54 Hemoglobin g/dl 14.4 --(*---)-- 13.5 17.5 Procedure Procedure Types Cath Procedure Diagnostic Procedure [facility] w/Coronaries Procedure Description Procedure Date Procedure Date: 01/11/2019 Procedure Start Time: 13:02 Procedure End Time: 13:13 Procedure Staff Name Function Mario Fulton MD Performing Physician Veronica Pichardo RT Monitor Noreen Beverly RT Scrub Kirill Saini RT Scrub Zohra Baez RN Nurse Procedure Data Cath Procedure Fluoroscopy Diagnostic fluoroscopy Total fluoroscopy Time: 1.5 time: 1.5 min min Diagnostic fluoroscopy Total fluoroscopy dose: 96 dose: 96 mGy mGy Contrast Material Contrast Material Type Amount (ml) Isovue 300 73 Entry Location Entry Primary Successful Side Size Upsize Upsize Entry Closure Succes sful Closure Location (Fr) 1 (Fr) 2 (Fr) Remarks Device Remarks Femoral Right 5 Fr Exoseal artery Estimated blood loss: 10 ml Diagnostic catheters Device Type Used For End Catheter Placement MULTIPACK JL 4.0 5Fr Procedure catheter MULTIPACK 3DRC 5Fr Procedure catheter MULTIPACK Pigtail 5 Fr Procedure catheter Procedure Complications No complications Procedure Medications Medication Administration Route Dosage 0.9% NaCl I.V. 100 ml/hr Oxygen etCO2 Nasal cannula 2 l/min Lidocaine 2% added to field 20 Heparin Flush Bag added to field 2 bags (1000units/500ml NS) Versed I.V. 2 mg Fentanyl I.V. 50 mcg Fentanyl I.V. 50 mcg Hemodynamics Rest BSA: 1.73 (m2) HGB: 14.4 (g/dl) O2 Consumption: Estimated: 172.33 (ml/min) O2 Co nsumption indexed: Estimated:99.61 (ml/min/m) Heart Rate: 78 (bpm) Pressure Samples Time Site Value (mmHg) Purpose Heart Use Rate(bpm) 13:08 LV 153/19,19 Snapshot 87 13:08 LV 159/19,20 Snapshot 89 Gradients Valve Time Site Site Mean SEP/DFP Peak To Heart Use 1 2 (mmHg) (sec/min) Peak Rate (mmHg) (bpm) Aortic 13:09 LV AO 82 Snapshots Pre Cath Intra NCS Post Cath Vital Signs Time Heart Resp SPO2 etCO2 NIBP (mmHg) Rhythm Pain Sedation Rate (ipm) (%) (mmHg) Status Level (bpm) 12:47:53 91 15 100 17.3 Measuring NSR 0 (11) 10(A) , No pain 12:48:07 81 16 100 21 193/94(141) NSR 0 (11) 10(A) , No pain 12:52:32 78 20 99 14.2 155/92(119) NSR 0 (11) 10(A) , No pain 12:56:46 77 19 99 15.7 141/84(110) NSR 0 (11) 10(A) , No pain 13:00:58 75 18 99 9.7 119/72(93) NSR 0 (11) 10(A) , No pain 13:05:52 86 20 100 24 146/85(115) NSR 0 (11) 10(A) , No pain 13:10:00 84 17 100 26.3 155/93(117) NSR 0 (11) 10(A) , No pain 13:14:10 77 18 100 25.5 145/93(125) NSR 0 (11) 10(A) , No pain Medications Time Medication Route Dose Verified Delivered Reason Notes Eff ectiveness by by 12:50:08 0.9% NaCl I.V. 100 Mario العلي used for ml/hr Kirstin Nestor procedure MD BHARDWAJ 12:50:15 Oxygen etCO2 2 Mario العلي used for Nasal l/min Kirstin Nestor procedure cannula MD BHARDWAJ 12:50:20 Lidocaine 2% added 20ml Mario Martin for local to vial Kirstin Kirstin anesthetic field MD CHAVEZ 12:50:24 Heparin Flush added 2 Mario Martin used for Bag to bags Kirstin Kirstin procedure (1000units/500ml field MD CHAVEZ NS) 13:01:59 Versed I.V. 2 mg Mario العلي for Kirstin Nestor sedation MD BHARDWAJ 13:02:05 Fentanyl I.V. 50 Mario العلي for mcg KirstinChele Baez sedation MD BHARDWAJ 13:06:13 Fentanyl I.V. 50 Mario العلي for mcg KirstinChele Baez sedation cobol engineer Log Time Note 12:32:53 Zohra Baez RN sent for patient. Start room use. 12:32:55 Procedure Status Elective Heart Cath (OP). 12:32:57 Time tracking: Regular hours (M-F 7:00 - 5:00) 12:33:00 Plan of Care:Hemodynamics will remain stable., Cardiac rhythm will remain stable., Comfort level will be maintained., Respiratory function will remain adequate., Patient/ family verbilizes understanding of procedure., Procedure tolerated without complication., Recovers from procedure without complications.. 12:33:01 Signed procedure consent form obtained from patient. 12:34:22 Patient Weight : 149.92 lbs 12:34:39 Patient Height : 63.78 inches 12:34:47 Arrival Date: 01/11/2019 12:00:00 AM 12:35:17 Insurance Payor : Private health insurance 12:38:07 H&P Date Dictated: 01/02/2019 Within 30 days and on chart., H&P Addendum completed by physician on day of procedure. (MUST COMPLETE FOR ALL OUTPATIENTS). 12:39:21 Patient received from Pre/Post Procedure Room to CCL 3 Alert and oriented. Tansferred to table in Supine position. 12:39:23 Warm blankets applied, and balwinder hugger turned on for patient comfort. 12:39:23 Correct patient and procedure confirmed by team. 12:39:23 ECG and BP/O2 sat monitors applied to patient. 12:46:05 Vital chart was started 12:48:32 Baseline sample Acquired. 12:48:35 Rhythm: sinus rhythm 12:48:37 Full Disclosure recording started 12:48:38 Pre-procedure instructions explained to patient. 12:48:38 Pre-op teaching completed and patient verbalized understanding. 12:48:39 Family in patients room. 12:48:41 Patient NPO since Midnight. 12:49:03 Patient allergic to Other allergyIBUPROFEN, MIRAPEX, MOTRIN 12:49:11 Is patient on blood thinner?No 12:49:12 Patient diabetic? Yes. 12:49:13 If diabetic: On Metformin? Yes 12:49:15 If on Metformin: Last Dose? 01/10/2019 12:50:00 Patient not . Patient has had hysterectomy. 12:50:03 Previous problem with sedation/anesthesia? No ? 12:50:04 Snore? Yes 12:50:05 Sleep apnea? No 12:50:06 Deviated septum? No 12:50:07 Opens mouth fully? Yes 12:50:08 0.9% NaCl 100 ml/hr I.V. was administered by Zohra Baez RN; used for procedure; 12:50:08 Sticks out tongue? Yes 12:50:10 Airway obstruction? Yes COPD 12:50:13 Dentures? Yes IN 12:50:15 Oxygen 2 l/min etCO2 Nasal cannula was administered by Zohra Baez RN; used for procedure; 12:50:16 Pre procedure: right dorsailis pedis pulse 1+ Palpable, but thready & weak; easily obliterated 12:50:20 Lidocaine 2% 20ml vial added to field was administered by Mario Fulton MD; for local anesthetic; 12:50:23 IV patent on arrival in left forearm with 0.9% NaCl at [facility]. 12:50:24 Heparin Flush Bag (1000units/500ml NS) 2 bags added to field was administered by Mario Fulton MD; used for procedure; 12:51:00 Lab Result : BUN 10 mg/dl 12:51:00 Lab Result : Creatinine 0.9 mg/dl 12:51:00 Lab Result : eGFR NONAFRICAN 69 ml/min 12:51:00 Lab Result : Hemoglobin 14.4 g/dl 12:51:00 Lab Result : Hematocrit 42.1 % 12:51:04 Lab results completed and on chart. 12:51:08 Right groin area was prepped with chlora-prep and draped in sterile fashion 12:51:09 Alarms reviewed by R. N. 12:51:09 Sharps counted by scrub and verified by R.N. 12:58:46 Use device set Femoral Dx 12:58:47 ACIST Syringe (86253) opened to sterile field. 12:58:47 Bag Decanter (2002) opened to sterile field. 12:58:48 ACIST Hand Control (34462) opened to sterile field. 12:58:49 ACIST Manifold (83818) opened to sterile field. 12:58:49 Tegaderm 4 x 4 (1626W) opened to sterile field. 12:58:51 Medline Cath Pack ([id number]) opened to sterile field. 12:58:52 DIAGNOSTIC Multipack 5Fr catheter set (YL5337) opened to sterile field. 12:58:52 SHEATH 5FR [place] (DXQ535) opened to sterile field. 12:58:53 EMERALD Guide Wire (521-648) opened to sterile field. 12:59:01 Zero performed for pressure channel P1 12:59:22 --------ALL STOP TIME OUT------ 12:59:22 Final Timeout: patient, procedure, and site verified with staff and physician. All members of the team are in agreement. 12:59:23 Right groin site verified by team. 12:59:26 Fire Safety Assessment: A--An alcohol-based skin anteseptic being used preoperatively., C--Open oxygen or nitrous oxide is being used., D--An ESU, laser, or fiber-optic light is being used. 12:59:31 Physical assessment completed. ASA score P 3 - A patient with severe systemic disease as per Mario Fulton MD. 12:59:37 2) 60-89 Mildly reduced kidney function, and other findings (as for stage 1) point to kidney disease. 12:59:41 Maximum allowable contrast dose (3.7 X eGFR X 0.75)181 ml. 12:59:48 Sedation plan: IV Moderate Sedation Medication:Versed, Fentanyl 13:01:59 Versed 2 mg I.V. was administered by Zohra Baez RN; for sedation; 13:02:05 Fentanyl 50 mcg I.V. was administered by Zohra Baez RN; for sedation; 13:02:27 Procedure started. 13:02:32 Local anesthetic to right femoral artery with Lidocaine 2% by Mario Fultno MD.INITIAL ACCESS ONLY 13:03:45 A 5 Fr sheath was inserted into the Right Femoral artery 13:04:10 A MULTIPACK JL 4.0 5Fr catheter was advanced over the wire and used for Procedure. 13:05:51 LCA angiography performed. 13:05:56 Catheter removed. 13:06:13 Fentanyl 50 mcg I.V. was administered by Zohra Baez RN; for sedation; 13:06:36 A MULTIPACK 3DRC 5Fr catheter was advanced over the wire and used for Procedure. 13:07:29 RCA angiography performed. 13:07:30 Catheter removed. 13:07:36 A MULTIPACK Pigtail 5 Fr catheter was advanced over the wire and used for Procedure. 13:08:35 LV gram done using CORONADO 13:08:37 Injector settings: Ml/sec: 10, Volume: 20, 13:08:55 LV hemodynamics recorded. 13:09:10 EF : 50 % 13:09:11 Catheter removed. 13:09:12 EXOSEAL 5Fr (EX500) opened to sterile field. 13:09:48 Sheath removed intact; hemostasis achieved with Exoseal to the Right Femoral artery. 13:10:09 Procedure ended.(Physican Out) 13:10:28 Fluoroscopy time 01.50 minutes. 13:10:32 Flurop Dose total: 96 13:10:32 Fluoroscopy dose: 96 mGy 13:10:39 Contrast amount:Isovue 300 73ml. 13:10:41 Maximum allowable dose exceeded? No. 13:10:42 Sharps counted by scrub and verified by R.N. 13:10:45 Post-op/insertion site Right Femoral artery dressed using a 4 x 4 and Tegaderm. 13:10:49 Post-procedure physical assessment completed. ASA score P 3 - A patient with severe systemic disease as per Mario Fulton MD. 13:10:51 Post procedure rhythm: sinus rhythm 13:10:54 Estimated blood loss: 10 ml 13:10:55 Post procedure instruction explained to patient.Patient verbalizes understanding. 13:10:56 Patient needs reinforcement of post procedure teaching. 13:11:20 Procedure and supply charges have been captured, reviewed, submitted and are correct. 13:11:22 Procedure Complication : No complications 13:13:30 Vital chart was stopped 13:13:30 See physician's report for complete and final results. 13:13:31 Report given to Pre/Post Procedure Room. 13:13:34 Patient transfered to ED with Bed. 13:13:35 Procedure ended. 13:13:35 Full Disclosure recording stopped 13:13:39 End room use (Document Last) Device Usage Item Name Manufacture Quantity Catalog Hospital Part Current Minimal L ot# / Number Charge Number Stock Stock Serial# Code ACIST Acist 1 27349 [id number] [id number] [id number] 20 Syringe Medical (86867) Systems Inc Bag Microtek 1 474821 40818 486791 5 Decanter Medical Inc. () ACIST Hand Acist 1 02265 009202 568767 665603 5 Control Medical (22470) Systems Inc ACIST Acist 1 84582 386882 116323 404488 5 Manifold Medical (39240) Systems Inc Tegaderm 4 3M 1 1626W 894268 030859 589529 5 x 4 (1626W) Medline Medline 1 [id number] 845004 55731 787578 5 Cath Pack ([id number]) DIAGNOSTIC Cardinal 1 GZ7192 786385 73060 176354 30 Multipack Health 5Fr catheter set (CV8335) SHEATH 5FR Terumo 1 CWG166 997801 340317 330412 5 [place] (HOZ205) EMERALD Cardinal 1 403-267 434206 489456 559345 5 Guide Wire Health (878-814) MULTIPACK Cardinal 1 687480 5 JL 4.0 5Fr Health catheter MULTIPACK Cardinal 1 913622 5 3DRC 5Fr Health catheter MULTIPACK Cardinal 1 176444 5 Pigtail 5 Health Fr catheter EXOSEAL 5Fr Cardinal 1 EX500 003100 389631 510911 10 (EX500) Health Signature Audit [place] Stage Time Signature Unsigned Intra-Procedure 01/11/2019 Veronica Pichardo 1:17:09 PM RT(R) Signatures Performing Physician : Signature : Mario Fulton MD Date : Time : Monitor : Veronica Pichardo Signature : RT Date : Time : Nurse : Zohra Baez RN Signature : Date : Time : [place] [id number] MAK BLAIR, SHER[place] [address]
[2019-01-11] MEDS ORDERED: BUPROPION HCL150 M1 PO (11:16)
[2019-01-11] MEDS ORDERED: ZYRTEC10 MG PO (11:17)
[2019-01-11] MEDS ORDERED: CELEXA10 MG PO (11:17)
[2019-01-11] MEDS ORDERED: GLUCOTROL 5 MG T5 MG PO (11:19)
[2019-01-11] MEDS ORDERED: ATROVENT 0.02%2.5 ML UPD (11:20)
[2019-01-11] MEDS ORDERED: MECLIZINE HCL25 MG PO (11:21)
[2019-01-11] MEDS ORDERED: NYSTATIN OINTME15 GM TOPICAL (11:24)
[2019-01-11 11:33] VITALS: BP 149/81; Ht 162.6 cm; Wt 67.7 kg
[2019-01-11 11:34] LABS: BASOPHILS 0.2 % (0-2); EOSINOPHILS 1.9 % (0-7); HEMATOCRIT 42.1 % (36.0-48.0); HEMOGLOBIN 14.4 g/dL (12-16); IMMATURE GRANULOCYTES 0.2 % (0-5); LYMPHOCYTES 27.9 % (15-50); MCH 30.1 pg (26.0-34.0); MCHC 34.2 g/dL (31.0-37.0); MCV 87.9 fL (80.0-100.0); MEAN PLATELET VOLUME 12.2 fL (7.4-10.4); MONOCYTES 6.4 % (2-11); NEUTROPHILS 63.4 % (40-80); PLATELET COUNT 139 10x3/uL (130-400); RBC 4.79 10x6/uL (4.00-5.40); RDW 13.2 % (11.5-14.5); WBC 8.3 10x3/uL (4.8-10.8)
[2019-01-11 11:51] LABS: ANION GAP 8.9 mmol/L (8-16); CALCIUM 8.8 mg/dL (8.5-10.1); CARBON DIOXIDE 30.9 mmol/L (21.0-32.0); CHOL - HDL RATIO 4.8 ratio (2.3-4.1); CREATININE - SERUM 0.9 mg/dL (0.6-1.3); LDL-HDL RATIO 2.3 ratio (1.5-3.5); POTASSIUM - SERUM 3.8 mmol/L (3.5-5.1)
--- NOTE | 2019-01-11 13:25 | NUR ---
PT RECEIVED VIA STRETCHER FROM BROADBAND ENGINEER POST PROCEDURE. PT SLEEPING BUT AWAKEN TO VERBAL STIMULI. SHE DENIES PAIN OR DISCOMFORT. IV PATENT INFUSING VIA ORDERS. HR NSR RATE 76, BP 190/99, 02 PLACED AT 2L/NC, SAT 98. R GROIN W 5FR EXOCELE, DRESSING CDI NO BLEEDING OR HEMATOMA NOTED. LEG PINK AND WARM AND PEDAL PULSES PALPABLE. MONITORS ON, CALL LIGHT IN REACH.
--- NOTE | 2019-01-11 13:49 | NUR ---
PT RESTING COMFORTABLY, TOLERATING SPRITE W/O NAUSEA. HR NSR RATE 75, BP 150/79. R GROIN SOFT, NO BLEEDING OR HEMATOMA NOTED. LEG REMAINS PINK AND WARM, PEDAL PULSES PALPABLE. CALL LIGHT IN REACH
--- NOTE | 2019-01-11 14:28 | NUR ---
GROIN SOFT, DRESSING CDI NO BLEEDING OR HEMATOMA NOTED. LEG PINK AND WARM, PEDAL PULSES PALPABLE. IV PATENT INFUSING VIA ORDERS. HOB ELEVATED SLIGHTLY, SANDWICH AND DRINK SERVED. PT DENIES PAIN OR NAUSEA. AT BEDSIDE, CALL LIGHT IN REACH
--- NOTE | 2019-01-11 14:38 | OP ---
PATIENT NAME: RIKI ROME MEDICAL RECORD: [id number] :63 LOCATION:D.CAT ADMISSION DATE: SURGEON: NAVARRO WALLS MD DATE OF OPERATION: 01/11/2019 PROCEDURE: Left heart catheterization, selective coronary angiography, right femoral artery approach. CATHETERS: A 5-[place]gar[place] sheath, 5/4 left and right Xiomara, 5/4 pig. The procedure was well tolerated and the patient was returned to gupta. Sheath removed. ExoSeal device placed. FINDINGS: Left ventriculography in 30-degree CORONADO view: Normal wall motion and normal systolic function. CORONARY ANATOMY: LEFT MAIN: Left main is free of disease. LAD: Free of disease in the diagonal system. CIRCUMFLEX: Free of disease in the marginal system. Previously placed stent is widely patent. RIGHT CORONARY ARTERY: Proximal placed stent is widely patent. No progression of [place] disease. IMPRESSION: Widely patent stents. No progression of [place] disease. Left ventricular function remains normal. TRANSINT:[id number] Voice Confirmation ID: [id number] DOCUMENT ID: [id number] NAVARRO WALLS MD at 1438 CC: [id number] DICTATION DATE: 01/11/19 1319 COMPUTER CONSOLE OPERATOR: 01/11/19 1421 [facility] [address] [place] [address]
--- NOTE | 2019-01-11 14:53 | NUR ---
PT VOIDED LG AMOUNT OF CLEAR YELLOW URING IN BEDPAN. R GROIN SOFT, DRESSING CDI NO BLEEDING OR HEMATOMA NOTED. TOLERATED FOOD AND DRINK W/O NAUSEA. VSS. AT BEDSIDE, CALL LIGHT IN REACH
--- NOTE | 2019-01-11 15:10 | NUR ---
DISCHARGE INSTRUCTIONS REVIEWED W PT AND , BOTH VERBALIZED UNDERSTANDING. IV REMOVED W CATH INTACT, MONITORS AND O2 REMOVED. PT UP TO DRESS FOR DISCHARGE. R GROIN REMAINS SOFT, NO BLEEDING OR HEMATOMA NOTED.
--- NOTE | 2019-01-11 15:24 | NUR ---
PT DISCHARGED TO PRIVATE VEHICLE TO WAITING VIA . SHE HAD ALL OF HER BELONGINGS.
== END 2019-01-11 15:20 | disposition home or self-care (01) ==
LOC: D.CATH 11:04
PROVIDERS: ATTEND Internal Medicine Interventional Cardiology
DX: I25.119 Atherosclerotic heart disease of native coronary artery with unspecified angina pectoris (principal); Z95.5 Presence of coronary angioplasty implant and graft; Z01.812 Encounter for preprocedural laboratory examination

== ENCOUNTER 2019-12-05 10:09 | Observation (INO) | payer MEDICAID ==
[~2019-12-05] VITALS: Ht 162.6 cm; Wt 66.8 kg
[2019-12-05] VITALS (8 sets, daily range): BP systolic 117–158; BP diastolic 65–81; Ht 162.6 cm; Wt 66.8 kg
--- NOTE | ~2019-12-05 | HEMODYNAMI ---
PATIENT:RIKI ROME MEDICAL RECORD: [id number] : 63 [id number] ADMISSION DATE: 12/05/19 Generatedon:12/06/201910:32 Patient name: RIKI ROME Patient #: [id number] SSN: [id number] : 1965 Date of study: 12/06/2019 Page: Of Hemodynamic Procedure Report Patient Data Patient Demographics Procedure consent was obtained First Name: RIKI Gender: Female Last Name: WILD : 1965 Middle Initial: GAYATRI Age: 54 year(s) Patient #: [id number] Race: SSN: [id number] Additional ID: [id number] Contact details Address: [address] [place] [address] [address] State: [place] City: [facility] Zip code: [address] Past Medical History History of disease Date Diagnosis Comments CAD Allergies Allergen Reaction Date Comments Reported Other allergy 09/16/2015 IBUPROFEN, PRAMIPEXOLE Other allergy 05/01/2017 ibuprofen, pramipexole Other allergy 05/02/2017 Ibuprofen, Mirapex Other allergy 12/12/2017 IBUPROFEN, MIRAPEX, MORTIN Other allergy 01/11/2019 IBUPROFEN, MIRAPEX, MOTRIN Other allergy 12/06/2019 ibuprofen, pramipexole, Admission Admission Data Admission Date: 12/05/2019 Admission Time: 12:29 Arrival Date: 12/06/2019 Arrival Time: 0:00 Admit Source: Other Insurance Payor: Medicaid Room #: D.2121 [facility] #: [id number] Height (in.): 64 BSA: 1.72 (m2) Height (cm.): 162.56 BMI: 25.28 (kg/m2) Weight (lbs.): 147.29 Weight (kg.): 66.81 Lab Results Lab Result Date: 12/06/2019 Lab Result Time: 0:00 Biochemistry Name Units Result Min Max BUN mg/dl 13 --(--*-)-- 7 18 CK-MB ng/ml 2.1 --(--*-)-- 0 3.6 Creatinine mg/dl 1 --(--*-)-- 0.6 1.3 eGFR ml/min 61.51829 *-(----)-- 90 120 NONAFRICAN Troponin l ng/ml 0.017 --(-*--)-- 0 0.06 CBC Name Units Result Min Max Hematocrit % 43.3 --(*---)-- 42 54 Hemoglobin g/dl 14.1 --(*---)-- 13.5 17.5 Procedure Procedure Types Cath Procedure Diagnostic Procedure LHC [facility] w/Coronaries Sedation Charges Moderate Sedation up to 15 minutes Procedure Description Procedure Date Procedure Date: 12/06/2019 Procedure Start Time: 10:18 Procedure End Time: 10:30 Procedure Staff Name Function Phoenix Li MD Performing Physician Noreen Beverly RT Monitor Neli Perez RT Scrub Alcira Palacios RN Nurse Procedure Data Cath Procedure Fluoroscopy Diagnostic fluoroscopy Total fluoroscopy Time: 1 time: 1 min min Diagnostic fluoroscopy Total fluoroscopy dose: 194 dose: 194 mGy mGy Contrast Material Contrast Material Type Amount (ml) Isovue 370 23 Entry Location Entry Primary Successful Side Size Upsize Upsize Entry Closure Dorsey ccessful Closure Location (Fr) 1 (Fr) 2 (Fr) Remarks Device Remarks Radial Right 6 Fr Mechanical artery Short Compression Estimated blood loss: 5 ml Diagnostic catheters Device Type Used For End Catheter Placement DIAGNOSTIC [place] 110cm 5 Procedure Fr catheter ([id number]) Procedure Complications No complications Procedure Medications Medication Administration Route Dosage Oxygen etCO2 Nasal cannula 2 l/min Lidocaine 2% added to field 20 Heparin Flush Bag added to field 2 bags (1000units/500ml NS) 0.9% NaCl I.V. 100 ml/hr Versed I.V. 1 mg Fentanyl I.V. 25 mcg Radial Cocktail I.A. 1 syringe (Verapamil 2mg/Nitro 400mcg/Heparin 1500units) Hemodynamics Rest BSA: 1.72 (m2) HGB: 14.1 (g/dl) O2 Consumption: Estimated: 176.87 (ml/min) O2 Co nsumption indexed: Estimated:102.83 (ml/min/m) Heart Rate: 87 (bpm) Pressure Samples Time Site Value (mmHg) Purpose Heart Use Rate(bpm) 10:22 LV 105/8,21 Snapshot 76 10:22 LV 176/22,111 Snapshot 89 Gradients Valve Time Site Site Mean SEP/DFP Peak To Heart Use 1 2 (mmHg) (sec/min) Peak Rate (mmHg) (bpm) Aortic 10:23 LV AO 83 Snapshots Pre Cath Intra NCS Post Cath Vital Signs Time Heart Resp SPO2 etCO2 NIBP (mmHg) Rhythm Pain Sedation Rate (ipm) (%) (mmHg) Status Level (bpm) 10:07:34 76 10 95 0 155/86(124) NSR 7 (11) 10(A) , Very intense 10:11:50 75 11 100 42.9 145/83(129) NSR 7 (11) 10(A) , Very intense 10:16:04 75 17 100 12 119/71(102) NSR 7 (11) 10(A) , Very intense 10:20:12 76 17 99 9.7 100/69(88) NSR 0 (11) 9(A) , No pain 10:24:18 80 17 97 14.2 99/60(92) NSR 0 (11) 9(A) , No pain 10:29:07 77 16 98 45.8 116/72(100) NSR 0 (11) 10(A) , No pain Medications Time Medication Route Dose Verified Delivered Reason Notes Effectiveness by by 10:09:25 Oxygen etCO2 2 l/min Norred Buffie used for Nasal Guillermo Palacios RN procedure cannula 10:09:31 Lidocaine 2% added 20ml Norred Norred for local to vial Guillermo Li MD anesthetic field 10:09:36 Heparin Flush added 2 bags Norred Norred used for Bag to Guillermo Li MD procedure (1000units/500ml field NS) 10:09:44 0.9% NaCl I.V. 100 Norred Buffie Per ml/hr Guillermo Palacios RN physician 10:16:32 Versed I.V. 1 mg Norred Buffie for sedation Guillermo Palacios RN 10:16:39 Fentanyl I.V. 25 mcg Norred Buffie for sedation Guillermo Palacios RN 10:21:53 Radial Cocktail I.A. 1 Norred Norred for (Verapamil syringe Guillermo Li MD vasodilation 2mg/Nitro 400mcg/Heparin 1500units) Procedure Log Time Note 9:27:26 Diagnostic Cath Status : Urgent 9:42:33 Procedure Status Urgent Heart Cath (IP). 9:42:38 Time tracking: Regular hours (M-F 7:00 - 5:00) 9:42:42 Plan of Care:Hemodynamics will remain stable., Cardiac rhythm will remain stable., Comfort level will be maintained., Respiratory function will remain adequate., Patient/ family verbilizes understanding of procedure., Procedure tolerated without complication., Recovers from procedure without complications.. 9:45:14 Neli Perez RT(R) sent for patient. Start room use. 9:47:54 Lab Result : Troponin l 0.017 ng/ml 9:47:54 Lab Result : BUN 13 mg/dl 9:47:54 Lab Result : Creatinine 1 mg/dl 9:47:54 Lab Result : CK-MB 2.1 ng/ml 9:47:54 Lab Result : eGFR NONAFRICAN 61.92185 ml/min 9:47:54 Lab Result : Hemoglobin 14.1 g/dl 9:47:54 Lab Result : Hematocrit 43.3 % 9:48:08 Arrival Date: 12/06/2019 12:00:00 AM 9:48:09 Admit Source: Other 9:48:15 Insurance Payor : Medicaid 9:48:35 Patient Height : 64 inches 9:48:39 Patient Weight : 147.29 lbs 9:48:47 Informed consent obtained and on chart 9:54:30 H&P Date Dictated: 12/05/2019 Within 30 days and on chart.. 9:54:31 Pre-procedure instructions explained to patient. 9:54:32 Pre-op teaching completed and patient verbalized understanding. 9:54:34 Family unavailable. 9:54:35 Patient NPO since Midnight. 9:55:10 Patient allergic to Other allergyibuprofen, pramipexole, 9:56:56 Lab results completed and on chart. 9:56:59 Stress Test: no; N/A ? 9:57:01 Risk of Mortality: 0.2 9:57:04 Risk of blood transfusion: 1.8 9:57:07 Risk of JOANNE: 0.1 9:57:08 Alarms reviewed by R. N. 9:57:09 Sharps counted by scrub and verified by R.N. 9:58:03 Patient received from Med II to CCL 1 Alert and oriented. Tansferred to table in Supine position. 9:58:05 Warm blankets applied, and balwinder hugger turned on for patient comfort. 9:58:05 Correct patient and procedure confirmed by team. 9:58:06 ECG and BP/O2 sat monitors applied to patient. 10:06:25 Vital chart was started 10:07:58 Baseline sample Acquired. 10:07:59 Full Disclosure recording started 10:08:02 Is the patient allergic to Iodine/contrast media? No. 10:08:05 Was the patient premedicated? N/A 10:08:06 Is patient on blood thinner?Yes 10:08:13 ACC The patient was administered the following blood thiners within the last 24 hours: ACCAspirin, ACCPlavix 10:08:15 Patient diabetic? Yes. 10:08:17 If diabetic: On Metformin? Yes 10:08:21 If on Metformin: Last Dose? 12/04/2019 10:08:28 Patient not . Patient is over age 55. 10:08:29 ----Pre-sedation anethsthesia assessment.---- 10:08:33 Previous problem with sedation/anesthesia? No ? 10:08:35 Snore? Yes 10:08:36 Sleep apnea? Unknown 10:08:41 Deviated septum? No 10:08:42 Opens mouth fully? Yes 10:08:43 Sticks out tongue? Yes 10:08:48 Airway obstruction? Yes copd 10:08:50 Dentures? No ? 10:08:53 Pre procedure: right dorsailis pedis pulse 1+ Palpable, but thready & weak; easily obliterated 10:08:56 Modified Femi's test Ulnar > 7 seconds. 10:08:58 Patient pain scale 0/10 ?. 10:09:03 IV patent on arrival in left antecubital with 0.9% NaCl at KVO. 10:09:08 Right Radial & Right Groin area was prepped with chlora-prep and draped in sterile fashion 10:09:15 Rhythm: sinus rhythm 10:09:20 Use device set Radial Dx or PCI 10:09:22 ACIST Syringe (74273) opened to sterile field. 10:09:22 Medline Cath Pack ([id number]) opened to sterile field. 10:09:23 Bag Decanter () opened to sterile field. 10:09:23 ACIST Hand Control (93368) opened to sterile field. 10:09:24 ACIST Manifold (89670) opened to sterile field. 10:09:25 Oxygen 2 l/min etCO2 Nasal cannula was administered by Alcira Palacios RN; used for procedure; Verbal order read back and verified. 10:09:25 MBrace Wrist Support ([id number]) opened to sterile field. 10:09:26 Tegaderm 4 x 4 (1626W) opened to sterile field. 10:09:28 EMERALD Guide Wire (891-411) opened to sterile field. 10:09:28 SHEATH 6FR RAIN (6126109) opened to sterile field. 10:09:31 Lidocaine 2% 20ml vial added to field was administered by Phoenix Li MD; for local anesthetic; Verbal order read back and verified. 10:09:36 Heparin Flush Bag (1000units/500ml NS) 2 bags added to field was administered by Phoenix Li MD; used for procedure; Verbal order read back and verified. 10:09:44 0.9% NaCl 100 ml/hr I.V. was administered by Alcira Palacios RN; Per physician; Verbal order read back and verified. 10:13:41 --------ALL STOP TIME OUT------ 10:13:42 Final Timeout: patient, procedure, and site verified with staff and physician. All members of the team are in agreement. 10:13:44 Right Radial & Right Groin site verified by team. 10:13:47 Fire Safety Assessment: A--An alcohol-based skin anteseptic being used preoperatively., C--Open oxygen or nitrous oxide is being used., D--An ESU, laser, or fiber-optic light is being used. 10:13:51 Physical assessment completed. ASA score P 2 - A patient with mild systemic disease as per Phoenix Li MD. 10:13:54 2) 60-89 Mildly reduced kidney function, and other findings (as for stage 1) point to kidney disease. 10:13:57 Maximum allowable contrast dose (3.7 X eGFR X 0.75)169 ml. 10:14:05 Sedation plan: IV Moderate Sedation Medication:Versed, Fentanyl 10:16:32 Versed 1 mg I.V. was administered by Alcira Palacios RN; for sedation; Verbal order read back and verified. 10:16:39 Fentanyl 25 mcg I.V. was administered by Alcira Palacios RN; for sedation; Verbal order read back and verified. 10:17:11 Procedure started. 10:18:09 Local anesthetic to right radial artery with Lidocaine 2% by Phoenix Li MD.INITIAL ACCESS ONLY 10:20:34 A DIAGNOSTIC [place] 110cm 5 Fr catheter ([id number]) was advanced over the wire and used for Procedure. 10:20:45 A 6 Fr Short sheath was inserted into the Right Radial artery 10:21:53 Radial Cocktail (Verapamil 2mg/Nitro 400mcg/Heparin 1500units) 1 syringe I.A. was administered by Phoenix Li MD; for vasodilation; Verbal order read back and verified. 10:22:11 LV gram done using CORONADO 10::17 Injector settings: Ml/sec: 12, Volume: 8, 10:22:42 LV hemodynamics recorded. 10:23:02 EF : 70 % 10:23:24 RCA angiography performed. 10:23:29 Injector settings: Ml/sec: 2, Volume: 4, 10:23:54 LCA angiography performed. 10::57 Injector settings: Ml/sec: 2, Volume: 4, 10:24:39 Catheter removed. 10:24:42 ZEPHYR REGULAR TR BAND (009262) opened to sterile field. 10:24:55 Sheath removed intact; hemostasis achieved with Mechanical Compression to the Right Radial artery. 10:24:57 Procedure ended.(Physican Out) 10:25:19 Fluoroscopy time 01.00 minutes. 10:25:23 Fluoroscopy dose: 194 mGy 10:25:23 Flurop Dose total: 194 10::29 Dose Area Product 61802 mGy/cm. 10:25:32 Contrast amount:Isovue 370 23ml. 10:25:36 Maximum allowable dose exceeded? No. 10::37 Sharps counted by scrub and verified by R.N. 10:25:40 Jewett band inflated with 14cc of air. 10:25:42 Post Procedure Pulses reassessed and unchanged 10:25:45 Post procedure: right dorsailis pedis pulse 1+ Palpable, but thready & weak; easily obliterated. 10:25:47 Post-procedure physical assessment completed. ASA score P 2 - A patient with mild systemic disease as per Phoenix Li MD. 10:25:50 Post procedure rhythm: unchanged. 10:26:09 Estimated blood loss: 5 ml 10:26:10 Post procedure instruction explained to patient.Patient verbalizes understanding. 10:26:11 Patient needs reinforcement of post procedure teaching. 10:26:40 Procedure type changed to Cath procedure, Diagnostic procedure, LHC, C w/Coronaries, Sedation Charges, Moderate Sedation up to 15 minutes 10:27:12 Procedure and supply charges have been captured, reviewed, submitted and are correct. 10:27:16 Procedure Complication : No complications 10:27:20 [facility] Findings: mild to moderate CAD (<70%) 10:27:21 Operative report dictated upon procedure completion. 10:27:22 See physician's report for complete and final results. 10:27:25 Report given to [facility]. 10:27:28 Patient transfered to [facility] with Bed. 10:29:56 Vital chart was stopped 10:29:59 Procedure ended. 10:29:59 Full Disclosure recording stopped 10:30:03 End room use (Document Last) Device Usage Item Name Manufacture Quantity Catalog Hospital Part Current Minima l Lot# / Number Charge Number Stock Stock Serial# Code ACIST Acist 1 70210 [id number] [id number] 20 Syringe Medical (66469) Systems Inc Medline Medline 1 [id number] 49232 727998 5 Cath Pack ([id number]) Bag Microtek 1 494048 49269 410852 5 Decanter Medical Inc. () ACIST Hand Acist 1 45562 489685 375535 611241 5 Control Medical (23390) Systems Inc ACIST Acist 1 79045 085692 920403 153137 5 Manifold Medical (92596) Systems Inc MBrace Advanced 1 [id number] 717703 64551 452230 5 Wrist Vascular Support Dynamics ([id number]) Tegaderm 4 3M 1 1626W 917118 352478 374074 5 x 4 (1626W) EMERALD Cardinal 1 502-455 876790 906067 682177 5 Guide Wire Health (088-215) SHEATH 6FR Cardinal 1 2515700 047536 1477678 738646 5 [facility] (9029616) DIAGNOSTIC Terumo 1 40-8117 283985 833313 537745 5 [place] 110cm 5 Fr catheter (230709) ZEPHYR Cardinal 1 231416 022693 6089883 846833 5 REGULAR TR Health BAND (522009) Signature Audit Renner Stage Time Signature Unsigned Intra-Procedure 12/06/2019 Noreen Beverly 10:31:22 AM RT(R) Intra-Procedure 12/06/2019 Alcira Palacios RN 10:31:36 AM Intra-Procedure 12/06/2019 Phoenix Li MD 10:32:21 AM [facility] [address] [place] [address]
[~2019-12-05 10:09] MED LIST changes: +ATROVENT 0.02%2.5 ML UPD; +CELEXA10 MG PO; +GLUCOTROL 5 MG T5 MG PO; +MECLIZINE HCL25 MG PO; +METHOCARBAMOL750 MG NG; +MUCINEX DM ER1 EAC1 PO; +NYSTATIN OINTME15 GM TOPICAL; +SYMBICORT 16010.2 GM; +TESSALON PERLE100 MG PO; +ZPAK PO
[2019-12-05 10:34] LABS: BASOPHILS 0.2 % (0-2); EOSINOPHILS 1.9 % (0-7); HEMATOCRIT 43.3 % (36.0-48.0); HEMOGLOBIN 14.1 g/dL (12-16); IMMATURE GRANULOCYTES 0.2 % (0-5); LYMPHOCYTES 27.7 % (15-50); MCH 29.7 pg (26.0-34.0); MCHC 32.6 g/dL (31.0-37.0); MCV 91.2 fL (80.0-100.0); MEAN PLATELET VOLUME 12.4 fL (7.4-10.4); MONOCYTES 6.4 % (2-11); NEUTROPHILS 63.6 % (40-80); RBC 4.75 10x6/uL (4.00-5.40); RDW 13.5 % (11.5-14.5); WBC 9.6 10x3/uL (4.8-10.8)
[2019-12-05 10:35] LABS: PLATELET COUNT 156 10x3/uL (130-400)
[2019-12-05 10:41] LABS: CALC OSMOLALITY 279 mosm/kg (275-300); CALCIUM 8.8 mg/dL (8.5-10.1); CHLORIDE - SERUM 103 mmol/L (98-107); GLUCOSE 211 mg/dL (74-106); POTASSIUM - SERUM 3.7 mmol/L (3.5-5.1); SODIUM 137 mmol/L (136-145); UREA NITROGEN 13 mg/dL (7-18); eGFR NON AFRICAN AMERICAN 61 mL/min (90-120)
[2019-12-05 10:43] LABS: APTT 25.8 SECONDS (22.8-39.4); INR 0.96 (0.85-1.17); PROTIME 12.7 SECONDS (11.6-15.0)
[2019-12-05 10:44] LABS: D-DIMER-QUANTITATIVE 0.28 ug/mLFEU (0.20-0.54)
[2019-12-05 10:57] LABS: ALBUMIN 3.5 g/dL (3.4-5.0); ALKALINE PHOSPHATASE 92 U/L (30-120); ALT (SGPT) 31 U/L (10-68); CKMB 2.1 U/L (0.0-3.6); CREATINE KINASE 127 UL (21-215); MAGNESIUM - SERUM 1.6 mg/dL (1.8-2.4); PROTEIN - SERUM 7.1 g/dL (6.4-8.2)
[2019-12-05 10:59] LABS: TROPONIN-I < 0.017 ng/mL (0.000-0.060)
--- NOTE | 2019-12-05 16:24 | NUR ---
ATTEMPTED TO CALL REPORT/ROOM NOT CLEAN
--- NOTE | 2019-12-05 16:41 | NUR ---
lab at for repeat lab draw
--- NOTE | 2019-12-05 16:41 | NUR ---
ADA DIET TRAY SERVED
[2019-12-05 16:46] LABS: CHOL - HDL RATIO 4.8 ratio (2.3-4.1); LDL-HDL RATIO 2.6 ratio (1.5-3.5)
--- NOTE | 2019-12-05 16:51 | NUR ---
REPORT CALLED TO NURSE DIANE
--- NOTE | 2019-12-05 17:15 | NUR ---
TRANSFER FROM ER BY W/C. CALL LIGHT IN REACH. WILL CONT. PLAN OF CARE.
[2019-12-05 17:21] LABS: CKMB 1.4 U/L (0.0-3.6); CREATINE KINASE 97 UL (21-215)
[2019-12-05 17:23] LABS: TROPONIN-I < 0.017 ng/mL (0.000-0.060)
[2019-12-05 23:19] LABS: CKMB 1.9 U/L (0.0-3.6); CREATINE KINASE 100 UL (21-215)
[2019-12-05 23:20] LABS: TROPONIN-I < 0.017 ng/mL (0.000-0.060)
[2019-12-06] VITALS: BP 131/88
[2019-12-06 04:00] VITALS: BP 123/75
[2019-12-06 05:02] LABS: BASOPHILS 0.4 % (0-2); EOSINOPHILS 2.7 % (0-7); HEMATOCRIT 40.8 % (36.0-48.0); HEMOGLOBIN 12.9 g/dL (12-16); IMMATURE GRANULOCYTES 0.2 % (0-5); LYMPHOCYTES 39.9 % (15-50); MCH 29.4 pg (26.0-34.0); MCHC 31.6 g/dL (31.0-37.0); MCV 92.9 fL (80.0-100.0); MEAN PLATELET VOLUME 12.4 fL (7.4-10.4); MONOCYTES 7.4 % (2-11); NEUTROPHILS 49.4 % (40-80); PLATELET COUNT 145 10x3/uL (130-400); RBC 4.39 10x6/uL (4.00-5.40); RDW 13.5 % (11.5-14.5); WBC 8.5 10x3/uL (4.8-10.8)
[2019-12-06 05:41] LABS: CALCIUM 8.1 mg/dL (8.5-10.1); CARBON DIOXIDE 26.7 mmol/L (21.0-32.0); CHLORIDE - SERUM 106 mmol/L (98-107); CKMB 1.3 U/L (0.0-3.6); CREATINE KINASE 78 UL (21-215); CREATININE - SERUM 0.9 mg/dL (0.6-1.3); POTASSIUM - SERUM 4.1 mmol/L (3.5-5.1); SODIUM 139 mmol/L (136-145); UREA NITROGEN 16 mg/dL (7-18); eGFR NON AFRICAN AMERICAN 69 mL/min (90-120)
[2019-12-06 05:43] LABS: CALC OSMOLALITY 281 mosm/kg (275-300); GLUCOSE 155 mg/dL (74-106); TROPONIN-I < 0.017 ng/mL (0.000-0.060)
--- NOTE | 2019-12-06 09:52 | NUR ---
PRE-OPS GIVEN. TO ADVANCE AGENT BY BED.
[2019-12-06 09:57] VITALS: BP 143/75
--- NOTE | 2019-12-06 14:11 | NUR ---
TR BAND DCD WITHOUT BLEEDING OR HEMATOMA NOTED.
[2019-12-06 15:06] VITALS: BP 92/54
--- NOTE | 2019-12-06 16:23 | NUR ---
IV AND TELEMETRY DCD. DC PLANS GIVEN. UNDERSTANDING VOICED. ESCORTED TO CAR BY W/C.
== END 2019-12-06 16:24 | disposition home or self-care (01) ==
LOC: D.ER 10:09 → D.M2 12:29 → OBSVTIME 12:29 → D.M2 12-06 16:24
PROVIDERS: Family Medicine; Internal Medicine Cardiovascular Disease; ADMIT Family Medicine; ATTEND Family Medicine
DX: I25.110 Atherosclerotic heart disease of native coronary artery with unstable angina pectoris (principal); E11.65 Type 2 diabetes mellitus with hyperglycemia; E11.40 Type 2 diabetes mellitus with diabetic neuropathy, unspecified; I10 Essential (primary) hypertension; E78.5 Hyperlipidemia, unspecified; J44.9 Chronic obstructive pulmonary disease, unspecified; J45.909 Unspecified asthma, uncomplicated; F41.9 Anxiety disorder, unspecified; G89.29 Other chronic pain; K21.9 Gastro-esophageal reflux disease without esophagitis; F17.200 Nicotine dependence, unspecified, uncomplicated

== ENCOUNTER → 2020-02-25 08:31 | Outpatient (CLI) | payer MEDICAID ==
[2019-12-05 17:38] VITALS: BMI 25.3
--- NOTE | 2020-02-27 10:43 | EC ---
PATIENT:RIKI ROME DATE OF SERVICE: 02/25/20 SEX: F MEDICAL RECORD: [id number] DATE OF : 63 LOCATION:D[facility] AGE OF PATIENT: 54 ADMISSION DATE: 02/25/20 REFERRING PHYSICIAN: INTERPRETING PHYSICIAN: NAVARRO WALLS MD ECHOCARDIOGRAM REPORT ECHO CHARGES 4 ECHO COMPLETE Date: 02/25/20 CLINICAL DIAGNOSIS: HX OF CAD/HTN ASSESS EF AND VALVES ECHOCARDIOGRAPHIC MEASUREMENTS (adult normal given) AC root (d.<3.7cm) 2.6 cm LV Septum d (<1.2 cm> 1.1 cm Valve Excursion 1.2 cm LV Septum (systole) 1.4 cm Left Atria (s.<4.0cm> 2.9 cm LVPW d(<1.2cm) 1.3 cm RV (d.<2.3cm) 3.4 cm LVPW (sytole) 1.5 cm LV diastole(<5.6CM) 44 cm MV E-F(>70mm/sec) cm LV systole 3.5 cm LVOT Diameter 1.7 cm MV exc.(>10mm) 1.8 cm Est.ejection fraction (50-75%) % DOPPLER: LVIT cm/sec A 59.0 cm/sec E 74.0 cm/sec LA cm/sec RVSP 18 mmHg LVOT 103 cm/sec AOP1/2T m/s Asc. Ao 145 cm/sec RVOT 95 cm/sec RA cm/sec PA 104 cm/sec AV Gradient Peak 8.46 mmHg AV Mean 4.05 mmHg AV Area 1.8 cm MV Gradient Peak 2.71 mmHg MV Mean 1.26 mmHg MV Area cm COMMENTS: Chicken Hanger: 2 EDIN ARGUELLES Typewriter Tester: 3 Dr. Will TAPE# PACS Pericardial Effusion N DATE OF SERVICE: Adequate 2D, color flow imaging, spectral Doppler, and M-Mode. No LVH. LV internal dimension is normal. Wall motion is normal. EF is greater than or equal to 55%. Aortic valve is tricuspid. No evidence of stenosis by Doppler interrogation. Left atrium is normal. Mitral valve shows no prolapse. Trace MR. Right-sided chambers are grossly normal. Trace TR. TRANSINT:[id number] Voice Confirmation ID: [id number] DOCUMENT ID: [id number] ECHOCARDIOGRAM REPORT [id number] RIKI ROME,NAVARRO Mehta MD at 1043 CC: [id number] DICTATION DATE: 02/26/20 1236 ARTS EDUCATION TEACHER: 02/26/20 1428 DEP CLI 02/25/20 [place] [id number] [place] [id number]
== END | disposition home or self-care (01) ==
LOC: D.HCCECHO 08:30
PROVIDERS: ATTEND Internal Medicine Interventional Cardiology
DX: I25.10 Atherosclerotic heart disease of native coronary artery without angina pectoris (principal)